=== PATIENT | male | born 1950 | race Caucasian/White ===

== ENCOUNTER → 2018-01-15 16:42 | Outpatient (CLI) | payer MEDICARE, OTHER, SELFPAY ==
[2018-01-15 17:11] LABS: CREATININE FINGERSTICK 1.1 mg/dL (0.70-1.30); EGFR FINGERSTICK > 60.0000 mL/min (>60)
== END ==
PROVIDERS: Family Provider Internal Medicine; PCP Internal Medicine; Visit Provider Internal Medicine
DX: Z01.812 Encounter for preprocedural laboratory examination (principal); R26.9 Unspecified abnormalities of gait and mobility; R20.0 Anesthesia of skin; R20.2 Paresthesia of skin
CPT/HCPCS: 70553; A9585

== ENCOUNTER → 2018-02-25 09:20 | Outpatient (CLI) | payer MEDICARE, OTHER, SELFPAY ==
[2018-02-25 12:17] LABS: Erythrocyte Sedimentation Rate 9 mm/hr (0-20)
[2018-02-25 13:28] LABS: HIV - WCH Non-Reactive (Nonreactive); Vitamin B12 471 pg/mL (211-911)
[2018-02-25 13:51] LABS: Folates, (Folic Acid) > 100.00 ng/mL (3.1-55.4); Rheumatoid Factor < 10.0 IU/mL (<15)
[2018-02-26 22:09] LABS: PROEL- A/G Ratio 1.4 (0.7-1.7); PROEL- Albumin 4.4 g/dL (2.9-4.4); PROEL- Alpha-1 Globulin 0.2 g/dL (0.0-0.4); PROEL- Alpha-2 Globulin 0.7 g/dL (0.4-1.0); PROEL- Beta Globulin 1.1 g/dL (0.7-1.3); PROEL- Globulin, Total 3.1 g/dL (2.2-3.9); PROEL- TOTAL PROTEIN 7.5 g/dL (6.0-8.5); RNP Ab 0.2 AI (0.0-0.9); Smith Ab <0.2 AI (0.0-0.9)
[2018-02-27 10:32] LABS: ANTINUCLEAR ANTIBODIES DIRECT Negative (Negative); Hep C Antibodies <0.1 s/co ratio (0.0-0.9)
== END ==
PROVIDERS: Family Provider Internal Medicine; PCP Internal Medicine; Referring Provider Psychiatry & Neurology Neurology; Visit Provider Psychiatry & Neurology Neurology
DX: G62.9 Polyneuropathy, unspecified (principal); R20.2 Paresthesia of skin; R53.83 Other fatigue
CPT/HCPCS: 36415; 82607; 82746; 84165; 85652; 86038; 86235; 86431; 86703; 86803; 97110

== ENCOUNTER 2018-03-14 10:00 | Outpatient (RCR) | payer MEDICARE, OTHER, SELFPAY ==
--- NOTE | 2018-01-21 09:30 | HP.PTEVAL_ITS ---
Patient's Visit Information ZOEY VARMA is a 67 year old M referred to Physical Therapy by Brenda Anderson with a diagnosis of abnormal gait, poor balance, can not walk on toes, no tandem walk. Date of Evaluation: 01/21/18 Physical Therapist: Jamila Corbett - Visit Plan Frequency: 2x /Week Duration: 4 Weeks Plan: Test Pt on the NeuroCom and treat accordingly if needed. 2X/ week for 4 weeks for hip and ankle strengthening (including HEP), high level balance activities, gait training with HEP - Subjective Subjective: Pt reports that he feels that he has some balance issues. Did Medicare test and memory is ok and weaning self off wellbuterin and as that occurs he feels that his balance is getting better. They are doing more tests and sending him to a Neurologist as well. The MRI had somethings wrong. He is unable to do heel to toe walk and feels balance is much better since weaning Wellbutrin. Stairs: no trouble other than knees are the issue. Ok to stand up from a chair without using arms. Pt feels that the flat surface is much easier. No dizziness. The wellbuterin made him not as focused. He quit walking and needs to get back to it. Pt has DM and the Neuropathy is not as bad if he keeps his feet warm. He thinks that he has a nerve conduction test scheduled. - Pain R knee pain Pain Intensity (Out of 10): 2 - Objective Gait: B hip drop, Walks with decrease push off, slight veering. Unable to heel raise unless uses UE for full pressure through UE's, very weak with toe raise. LE MMT: Hip flex R 4+/5 and L 4-/5, knee ext R 4/5 and L s+/5, R knee flex 4/5 and L 4-/5, Hip abd R 4-/5 and L 4/5, B hip ext 4/5, B ankle DF 3+/5, B PF 3-/5, weakness present B ankle EV and INV. Tight B HS. FGA: - Balance Scores Functional Gait Assessment Score: 21 % Disability: 30.0000 - Goals Goal 1:: I HEP Goal Time Frame: 4-6 Weeks Goal 2:: Increase LE strength by 1/2 muscle grade to increase overall function ( at time of eval: LE MMT: Hip flex R 4+/5 and L 4-/5, knee ext R 4/5 and L s+/5 , R knee flex 4/5 and L 4-/5, Hip abd R 4-/5 and L 4/5, B hip ext 4/5, B ankle DF 3+/5, B PF 3-/5, weakness present B ankle EV and INV) Goal Time Frame: 4-6 Weeks Goal 3:: Increase FGA by 4 points to decrease fall risk. (at time of eval 21) Goal Time Frame: 4-6 Weeks Goal 4:: Test pt on the Neurocom Goal Time Frame: 1 Week Goal 5:: Be able to walk with more of a heel to toe gait pattern and more of a push off with gait Goal Time Frame: 4-6 Weeks - Rehabilitation Potential Rehabilitation Potential: Good - Anticipated Interventions Patient/Client Instruction: Educate patient on: Plan of Care For the Purpose of:: To increase ROM, To improve nutrient delivery to tissue, To improve muscle performance and motor function, To improve ability to perform ADL's, To increase tolerance to activity/condition/position, To improve ability of physical actions for home/community/work/leisure, To improve gait and locomotor functions, To improve health of tissue, To decrease soft tissue restriction, To increase flexibility/ROM, To improve balance, To improve safety with gait Therapeutic Exercise to Include: Strength training, Balance training, Flexibilty training, Gait and locomotor training, via Neurocom Balance Mas, Passive ROM, Active ROM For the Purpose of:: To increase ROM, To improve nutrient delivery to tissue, To improve muscle performance and motor function, To improve ability to perform ADL's, To increase tolerance to activity/condition/position, To improve ability of physical actions for home/community/work/leisure, To improve gait and locomotor functions, To improve health of tissue, To decrease soft tissue restriction, To increase flexibility/ROM, To improve balance, To improve safety with gait Functional Training to Include: Gait training For the Purpose of:: To improve gait and locomotor functions Manual Therapy Techniques to Include: Passive ROM For the Purpose of:: To decrease soft tissue restriction, To increase flexibility/ROM Thank you for the opportunity to evaluate your patient. For Medicare and Medicare HMO plans, please review the plan of care and approve it. It will need to be FAXED BACK to us at [phone] for Medicare purposes. Please let me know if there are questions or concerns regarding this plan of care. Physician Signature: Date:
--- NOTE | 2018-01-28 09:23 | HP.PTCOM ---
PT Communication Note 01/28/[address] Brenda Anderson , Thank you for the referral of Kashif Stoll to our clinic with a diagnosis of abnormal gait. The patient was tested on the NeuroCom today and enclosed are the patients test results. On the Sensory Organization Test (SOT), the pt had some issue using his vestibular system to help maintain his balance. The use of his somatosensory and visual systems are with in normal limits. His strategy analysis is more ankle dominant which is the higher level strategy and his central of gravity alignment is slightly more to the Right but still with in functional limits. The Patient scored with in age related norms for overall reaction time on the Motor Control Test (MCT). Limits of stability test revealed decreased weight shift to the forward and to the right. At this point in time we will see Kashif in the clinic 2X/ week for 4 weeks to work on LE strength including planterflexion strength and work on weight shifting and vestibular inputs. Sincerely, Jamila Corbett Contact Information
--- NOTE | 2018-02-28 09:01 | HP.PTREVAL ---
Brenda Anderson, It has been my pleasure to treat ZOEY VARMA over the last 9 visits for abnormal gait, poor balance, can not walk on toes, no tandem walk. Please see the progress note below for an update on the physical therapy plan of care! Subjective: Still struggles with leg strength and ankle strength and the balance. He is getting a nerve conduction test late March. Objective/Function: Gait: walks with no forefoot push off. LE MMT: Hip flex R 4+/5 and L 4-/5, knee ext R 4/5 and L 3+/5, R knee flex 4/5 and L 4-/5, Hip abd R 4-/5 and L 4/5, B hip ext 4-/5, B ankle DF 3+/5, B PF 3-/5. FGA: 23 Plan Plan: 2X/ week for 3 weeks for gym rountine for hip, knee and ankle strength. Continue with some vestibular inputs and high level balance activities as needed. Goals Goal 1:: I HEP Goal Time Frame: 4-6 Weeks Goal 2:: Increase LE strength by 1/2 muscle grade to increase overall function (at time of eval: LE MMT: Hip flex R 4+/5 and L 4-/5, knee ext R 4/5 and L s+/5, R knee flex 4/5 and L 4-/5, Hip abd R 4-/5 and L 4/5, B hip ext 4/5, B ankle DF 3+/5, B PF 3-/5, weakness present B ankle EV and INV) Goal Time Frame: 4-6 Weeks Goal 3:: Increase FGA by 4 points to decrease fall risk. (at time of eval 21) Goal Time Frame: 4-6 Weeks Goal Progress: Goal Met Goal 4:: Test pt on the Neurocom Goal Time Frame: 1 Week Goal Progress: Goal Met Goal 5:: Be able to walk with more of a heel to toe gait pattern and more of a push off with gait Goal Time Frame: 4-6 Weeks Anticipated Interventions Patient/Client Instruction: Educate patient on: Plan of Care For the Purpose of:: To increase ROM, To improve nutrient delivery to tissue, To improve muscle performance and motor function, To improve ability to perform ADL's, To increase tolerance to activity/condition/position, To improve ability of physical actions for home/community/work/leisure, To improve gait and locomotor functions, To improve health of tissue, To decrease soft tissue restriction, To increase flexibility/ROM, To improve balance, To improve safety with gait Therapeutic Exercise to Include: Strength training, Balance training, Flexibilty training, Gait and locomotor training, via Neurocom Balance Mas, Passive ROM, Active ROM For the Purpose of:: To increase ROM, To improve nutrient delivery to tissue, To improve muscle performance and motor function, To improve ability to perform ADL's, To increase tolerance to activity/condition/position, To improve ability of physical actions for home/community/work/leisure, To improve gait and locomotor functions, To improve health of tissue, To decrease soft tissue restriction, To increase flexibility/ROM, To improve balance, To improve safety with gait Functional Training to Include: Gait training For the Purpose of:: To improve gait and locomotor functions Manual Therapy Techniques to Include: Passive ROM For the Purpose of:: To decrease soft tissue restriction, To increase flexibility/ROM Please do not hesitate to contact me at [phone] by phone or if you have questions or concerns regarding this new plan of care! Sincerely, Jamila Corbett
--- NOTE | 2018-03-14 11:01 | HP.PTDCSUM ---
HP - PT D/C Summary It has been my pleasure to treat ZOEY VARMA under orders from Brenda Anderson, for the diagnosis of abnormal gait, poor balance, can not walk on toes, no tandem walk for a total of 13 visit(s). Discharge Date: 03/14/18 Please see the following information for a summary of their discharge status. - Subjective Subjective: Pt reports that he did something to his back rolling over in bed the other day. He has been using the heating pad. Pt feels that his strength is building. He feels that his heel to toe pattern is better. He is going to join . Pt has [employer] and will do it through that. - Pain R knee pain Pain Intensity (Out of 10): 0 - Overall Improvement % Improvement: 60 - Objective Objective/Function: LE MMT: Hip flex R 4+/5 and L 4/5, knee ext R 4/5 and L 4+/5, R knee flex 4/5 and L 4/5, Hip abd R 4/5 and L 4+/5, B hip ext 4/5, B ankle DF 3+/5, B PF 3-/5, weakness present B ankle EV and INV still). Gait: walks with decrease B push off. FGA: 25 - Goals Goal 1:: I HEP Goal Progress: Goal Met Goal 2:: Increase LE strength by 1/2 muscle grade to increase overall function (at time of eval: LE MMT: Hip flex R 4+/5 and L 4-/5, knee ext R 4/5 and L s+/5, R knee flex 4/5 and L 4-/5, Hip abd R 4-/5 and L 4/5, B hip ext 4/5, B ankle DF 3+/5, B PF 3-/5, weakness present B ankle EV and INV) Goal Progress: Goal Met Goal 3:: Increase FGA by 4 points to decrease fall risk. (at time of eval 21) Goal Progress: Progressing Goal 4:: Test pt on the Neurocom Goal Progress: Goal Met Goal 5:: Be able to walk with more of a heel to toe gait pattern and more of a push off with gait Goal Progress: Progressing - Plan Plan: DC PT to [employer] - D/C Information Discharge Comments: DC PT to [employer] If there are questions or concerns regarding this patient's physical therapy, please feel free to call me at [phone]. Thank you for the referral of this patient. Sincerely, Jamila Corbett
== END 2018-03-14 19:00 | disposition home or self-care (01) ==
LOC: PT 10:00
PROVIDERS: Family Provider Internal Medicine; PCP Internal Medicine; Visit Provider Internal Medicine
DX: R26.9 Unspecified abnormalities of gait and mobility (principal)
CPT/HCPCS: 97110; 97161; 97530; 97750

== ENCOUNTER → 2018-03-19 09:22 | Outpatient (CLI) | payer MEDICARE, OTHER, SELFPAY ==
--- NOTE | 2018-03-19 09:25 | RAD_ITS ---
STUDY: X-RAY - RIGHT KNEE REASON FOR EXAM: Male, 67 years old. Right knee pain. No known injury. TECHNIQUE: 4 view(s) of the knee. COMPARISON: Comparison is made with prior examination dated December 15, 2014. FINDINGS: Normal visualized distal femur. Normal visualized proximal tibia and fibula. Normal proximal tibiofibular articulation. There is moderate degenerative arthrosis of the medial femorotibial compartment with moderate joint space narrowing. Normal lateral femorotibial compartment. There is mild degenerative arthrosis of the patellofemoral articulation. The soft tissue structures are unremarkable. RAD/Knee 4 or More Views IMPRESSION: Degenerative arthrosis. Electronically Signed: Wong Wilson MD at 8:54 EST Tel [phone], Service support ,
== END ==
PROVIDERS: Family Provider Internal Medicine; PCP Internal Medicine; Referring Provider Internal Medicine; Visit Provider Internal Medicine
DX: M25.561 Pain in right knee (principal)
CPT/HCPCS: 73564

== ENCOUNTER → 2019-01-15 12:16 | Outpatient (CLI) | payer MEDICARE, OTHER, SELFPAY ==
[2019-01-01 10:13] LABS: BUN 16 mg/dL (7-18); Creatinine, Serum 1.27 mg/dL (0.70-1.30); EST Glomerular Filtration Rate 60 mL/min (>60); Est Glom Filt Rate - Afr Amer 72 mL/min (>60)
--- NOTE | 2019-01-15 12:21 | MRI_ITS ---
STUDY: MRI BRAIN WITH AND WITHOUT CONTRAST REASON FOR EXAM: Male, 68 years old. Follow-up meningioma TECHNIQUE: Standardized multiplanar fat and water weighted pulse sequences were obtained. 19 IV Gadavist was administered for the contrast portion of the examination. COMPARISON: January 15, 2018 FINDINGS: Normal size of the ventricles and extra-axial spaces for the patient's age. Minor periventricular white matter ischemic changes without evidence for acute infarct Normal bilateral basal ganglia. Normal thalami. There is no extra-axial fluid accumulation. Normal flow voids within the major intracranial circulation suggesting patency by spin echo criteria. Normal venous enhancement. Tiny right sphenoid wing meningioma in demonstrated not significantly changed since previous study. Empty sella deformity likely of no significance. Normal, infundibular stalk, optic chiasm and hypothalamus. Normal tectal plate and pineal gland. Normal midbrain, nicci and medulla. Normal cerebellum. Normal basal cisterns. Normal bilateral temporal bones. Normal bilateral internal auditory canals. No demonstrated orbital abnormality, within the constraints of a routine brain study. Small mucous retention cyst in left maxillary sinus Normal calvarium and skull base. Normal visualized soft tissue structures. Normal visualized upper cervical spine. MRI/Brain W/WO Contrast IMPRESSION: Minor periventricular white matter ischemic change without evidence for acute infarct Stable appearance to tiny right sphenoid wing meningioma No other significant abnormality Electronically Signed: Roby Oleary MD at 18:05 EDT , Service support ,
== END ==
PROVIDERS: Family Provider Internal Medicine; PCP Internal Medicine; Referring Provider Psychiatry & Neurology Neurology; Visit Provider Psychiatry & Neurology Neurology
DX: D32.9 Benign neoplasm of meninges, unspecified (principal)
CPT/HCPCS: 36415; 70553; 82565; 84520; A9575

== ENCOUNTER → 2019-07-07 08:42 | Outpatient (CLI) | payer MEDICARE, OTHER, SELFPAY ==
[2019-07-02 11:43] VITALS: BMI 31.1
== END ==
PROVIDERS: PCP Internal Medicine; Referring Provider Internal Medicine Cardiovascular Disease; Visit Provider Internal Medicine Cardiovascular Disease
DX: R00.2 Palpitations (principal)
CPT/HCPCS: 93225; 93226

== ENCOUNTER → 2019-07-10 06:08 | Outpatient (CLI) | payer MEDICARE, OTHER, SELFPAY ==
[2019-07-02 11:43] VITALS: BMI 31.1
--- NOTE | 2019-07-10 06:09 | ECHOD_ITS ---
Reason For Study: SOB Procedure This was a 2D Doppler, Color Flow transthoracic echocardiogram. The exam was of adequate technical quality. Exam performed in department. Left Ventricle Normal LV size. Left ventricular systolic function is normal. The estimated ejection fraction is 60 %. Diastolic function is indeterminate. No regional wall motion abnormalities noted. Right Ventricle Normal RV size. Normal systolic function. Atria The left atrium is mildly enlarged. Normal right atrium. No doppler evidence for ASD. Mitral Valve There is no mitral annular calcification. Mild diffuse mitral valve thickening. Mild focal mitral valve calcification of the anterior leaflet. Mild (1+) mitral valve insufficiency. Tricuspid Valve Normal tricuspid valve. Mild tricuspid valve insufficiency. Right ventricular systolic pressure estimated to be 26 mmHg. Aortic Valve Trisinus/trileaflet aortic valve. Moderate diffuse aortic valve thickening. Moderate diffuse aortic valve calcification. Mild aortic stenosis. Mild (1+) aortic valve insufficiency. Pulmonic Valve The pulmonic valve is not well visualized. Mild (1+) pulmonic valve insufficiency. Great Vessels Normal sized aortic root. Calcified aortic root. Pericardium/Pleural No pericardial effusion. MMode/2D Measurements & Calculations LVIDd: 4.1 cm IVSd: 1.2 cm LVOT diam: 2.0 cm LVIDs: 2.8 cm LVPWd: 1.1 cm LVOT area: 3.0 cm2 RVDd: 3.3 cm FS: 31.3 % Ao root diam: 3.7 cm LAV(MOD-bp): 77.5 ml LVAd ap4: 32.7 cm2 LAV(MOD-bp) Indexed: 36.7 ml/m2 EDV(MOD-sp4): 104.4 ml LAV(MOD-sp2): 68.1 ml EDV(sp4-el): 107.2 ml LAV(MOD-sp4): 87.9 ml LVAs ap4: 19.1 cm2 ESV(MOD-sp4): 45.1 ml ESV(sp4-el): 43.1 ml EF(MOD-sp4): 56.8 % EF(sp4-el): 59.8 % SV(MOD-sp4): 59.4 ml SV(sp4-el): 64.1 ml LA A4 area: 24.7 cm2 LA dimension(2D): 4.2 cm RA A4 area: 14.2 cm2 Doppler Measurements & Calculations MV E max janes: 83.1 cm/sec Lat Peak E' Janes: 6.9 cm/sec Med Peak E' Janes: 7.0 cm/sec MV A max janes: 80.1 cm/sec E/E' lat: 12.0 E/E' med: 11.9 MV E/A: 1.0 Ao V2 max: 193.5 cm/sec AI max janes: 431.9 cm/sec LV V1 max: 110.7 cm/sec Ao max P.0 mmHg AI max P.7 mmHg LV V1 max P.9 mmHg Ao V2 mean: 129.1 cm/sec LV V1 mean P.5 mmHg Ao mean P.5 mmHg AI dec slope: 351.4 cm/sec2 LV V1 mean: 73.9 cm/sec Ao V2 VTI: 39.7 cm AI P1/2t: 360.0 msec LV V1 VTI: 23.0 cm FACUNDO(I,D): 1.7 cm2 FACUNDO(V,D): 1.7 cm2 SV(LVOT): 68.6 ml PA V2 max: 96.1 cm/sec TR max janes: 240.9 cm/sec TR max P.3 mmHg Interpretation Summary Left ventricular systolic function is normal. The estimated ejection fraction is 60 %. The left atrium is mildly enlarged. There is no mitral annular calcification. Mild diffuse mitral valve thickening. Mild focal mitral valve calcification of the anterior leaflet. Mild (1+) mitral valve insufficiency. Mild tricuspid valve insufficiency. Mild aortic stenosis. Mild (1+) aortic valve insufficiency. Mild (1+) pulmonic valve insufficiency. Calcified aortic root. Right ventricular systolic pressure estimated to be 26 mmHg. Diastolic function is indeterminate. Ordering Physician: Curt Franks Referring Physician: Brenda Anderson M.D. Performed By: Raquel Lindsey RDCS
--- NOTE | 2019-07-10 14:29 | STRESSREP ---
Stress Test Report Date: 07-10-2019 Procedure: Exercise tolerance test/imaging study Indications: Shortness of breath/dyspnea on exertion Consent: Per the patient Procedure: The patient exercised on a Enoc protocol for 7 minutes completing Stage II and 1 minute of Stage III achieving a peak heart rate of 148 bpm (98 % predicted maximal heart rate) with a peak blood pressure 150/72 mmHg and a peak MET capacity of 8 METs. The baseline ECG demonstrated normal sinus rhythm. The peak exercise ECG demonstrated somatic/motion artifact with the appearance of [id number] ST segment variability with approximately [address] segment depression in leads II, III, aVF, and approximately 0.5 mm to [address] segment depression in leads V5 and V6 with gradual resolution towards baseline in recovery. There was a rare PVC during exercise and recovery and an atrial quadruplet during recovery. The functional capacity was considered average. There was no complaint of chest discomfort during exercise or recovery. The examination was discontinued secondary to dyspnea. Impression: 1. Technically adequate (percent predicted maximal heart rate greater than 85%) exercise tolerance test 2. Peak exercise ECG with [id number] ST segment variability with approximately [address] segment depression in leads II, III, aVF, and approximately 0.5 mm to [address] segment depression in leads V5 and V6 with gradual resolution towards baseline in recovery 3. There was a rare PVC during exercise and recovery and an atrial quadruplet during recovery 4. Nuclear images pending Myocardial perfusion imaging study: Technique: The patient was injected with 14.5 mCi of technetium 99m Cardiolite and subsequently rest SPECT Cardiolite nuclear imaging was obtained in the horizontal long, vertical long, and short axis views. The patient exercised on a Enoc protocol for 7 minutes completing Stage II and 1 minute of Stage III achieving a peak heart rate of 148 bpm (98 % predicted maximal heart rate) with a peak blood pressure 150/72 mmHg and a peak MET capacity of 8 METs. The patient was injected with 44.6 mCi of technetium 99m Cardiolite and subsequently stress SPECT Cardiolite nuclear imaging was obtained in the horizontal long, vertical long, and short axis views. A gated Cardiolite study at peak stress was obtained. Interpretation: Rest and stress SPECT Cardiolite nuclear imaging status post realignment, normalization, and attenuation correction, demonstrates the appearance of a small area of subtle diminished tracer uptake in the distal inferior segments at rest which appears to improve and/or normalize following stress. There is end systolic thickening and brightening. The gated Cardiolite study demonstrates myocardial thickening and inward wall motion. The reported LVEF is 57 %. Impression: 1. Rest and stress SPECT Cardiolite nuclear imaging demonstrate myocardial perfusion changes at rest which appear to improve and/or normalize following stress appearing compatible shifting soft tissue attenuation/artifact with no myocardial perfusion changes considered diagnostic for associated stress-induced myocardial ischemia. 2. The gated Cardiolite study reports an LVEF of 57 %. This note was generated with DocTreeation software. It may contain incorrect words, spelling, and punctuation that were not noted in checking the note before signing.
== END ==
PROVIDERS: PCP Internal Medicine; Referring Provider Internal Medicine Cardiovascular Disease; Visit Provider Internal Medicine Cardiovascular Disease
DX: R06.02 Shortness of breath (principal); R06.00 Dyspnea, unspecified
CPT/HCPCS: 78452; 93017; 93306; A9500; A4216

== ENCOUNTER → 2020-06-21 10:46 | Outpatient (CLI) | payer MEDICARE, OTHER, SELFPAY ==
[2020-06-08 15:37] VITALS: BMI 30.3
== END ==
PROVIDERS: PCP Internal Medicine; Referring Provider Internal Medicine Cardiovascular Disease; Visit Provider Internal Medicine Cardiovascular Disease
DX: I48.91 Unspecified atrial fibrillation (principal)
CPT/HCPCS: 93225; 93226

== ENCOUNTER → 2020-06-22 12:40 | Outpatient (CLI) | payer MEDICARE, OTHER, SELFPAY ==
[2020-06-08 15:37] VITALS: BMI 30.3
--- NOTE | 2020-06-22 12:40 | ECHOD_ITS ---
Reason For Study: Afib/Flutter Procedure This was a 2D Doppler, Color Flow transthoracic echocardiogram. The exam was of adequate technical quality. Exam performed in department. Left Ventricle Normal LV size. Left ventricular systolic function is normal. The estimated ejection fraction is 65 %. Unable to assess diastolic dysfunction. No regional wall motion abnormalities noted. Right Ventricle Normal RV size. Normal systolic function. Atria The left atrium is mildly enlarged. Normal right atrium. No doppler evidence for ASD. Mitral Valve There is no mitral annular calcification. Mild diffuse mitral valve thickening. Mild (1+) mitral valve insufficiency. Tricuspid Valve Normal tricuspid valve. Mild tricuspid valve insufficiency. Right ventricular systolic pressure estimated to be 25 mmHg. Aortic Valve Trisinus/trileaflet aortic valve. Mild diffuse aortic valve thickening. Moderate to severe focal aortic valve leaflet calcification. Mild aortic stenosis. Trivial aortic valve insufficiency. Pulmonic Valve The pulmonic valve is not well visualized. Mild (1+) pulmonic valve insufficiency. Great Vessels Normal sized aortic root. Pericardium/Pleural No pericardial effusion. MMode/2D Measurements & Calculations LVIDd: 4.3 cm IVSd: 1.1 cm LVOT diam: 2.0 cm LVIDs: 2.6 cm LVPWd: 1.1 cm LVOT area: 3.2 cm2 RVDd: 3.8 cm FS: 39.8 % Ao root diam: 3.7 cm LAV(MOD-bp): 61.9 ml LA A4 area: 20.1 cm2 LA dimension: 3.8 cm LAV(MOD-bp) Indexed: 29.7 ml/m2 LAV(MOD-sp2): 66.0 ml LAV(MOD-sp4): 57.6 ml RA A4 area: 15.2 cm2 Doppler Measurements & Calculations MV E max johnathan: 85.6 cm/sec Ao V2 max: 175.4 cm/sec AI max johnathan: 442.3 cm/sec Ao max P.3 mmHg AI max P.3 mmHg Ao V2 mean: 121.1 cm/sec AI dec slope: 193.7 cm/sec2 Ao mean P.7 mmHg AI P1/2t: 668.9 msec Ao V2 VTI: 31.6 cm FACUNDO(I,D): 1.7 cm2 FACUNDO(V,D): 1.7 cm2 LV V1 max: 92.0 cm/sec SV(LVOT): 54.8 ml PA V2 max: 80.9 cm/sec LV V1 max P.4 mmHg LV V1 mean P.0 mmHg LV V1 mean: 65.9 cm/sec LV V1 VTI: 17.1 cm TR max johnathan: 232.9 cm/sec TR max P.7 mmHg Interpretation Summary Left ventricular systolic function is normal. The estimated ejection fraction is 65 %. The left atrium is mildly enlarged. Mild diffuse mitral valve thickening. Mild (1+) mitral valve insufficiency. Mild tricuspid valve insufficiency. Mild aortic stenosis. Trivial aortic valve insufficiency. Mild (1+) pulmonic valve insufficiency. Right ventricular systolic pressure estimated to be 25 mmHg. Unable to assess diastolic dysfunction. Ordering Physician: Curt Frakns Referring Physician: Brenda Anderson M.D. Performed By: Trav Cabral RCS
== END ==
PROVIDERS: PCP Internal Medicine; Referring Provider Internal Medicine Cardiovascular Disease; Visit Provider Internal Medicine Cardiovascular Disease
DX: I48.91 Unspecified atrial fibrillation (principal); E78.2 Mixed hyperlipidemia; I10 Essential (primary) hypertension; I38 Endocarditis, valve unspecified
CPT/HCPCS: 93306

== ENCOUNTER 2020-07-19 10:36 | Day surgery (SDC) | payer MEDICARE, OTHER, SELFPAY ==
[2020-06-08 15:37] VITALS: BMI 30.3
[2020-07-15 10:59] VITALS: BMI 29.8
--- NOTE | 2020-07-15 11:55 | RAD_ITS ---
STUDY: X-RAY CHEST REASON FOR EXAM: Male, 70 years old. Pre procedure TECHNIQUE: PA and lateral views of the chest. COMPARISON: None. FINDINGS: The lungs are clear and expanded. There is no demonstrated pleural abnormality. Normal size heart. Normal mediastinum and ching. Normal visualized pulmonary arteries. Normal visualized aortic arch and descending thoracic aorta. Normal visualized thoracic spine. Normal visualized ribs, clavicles, and shoulders. There is no demonstrated abnormality of the visualized soft tissue structures of the upper abdomen. RAD/Chest PA and Lateral IMPRESSION: Normal x-ray examination of the chest. Electronically Signed: Kevin Gonzalez DO at 4:56 EST Tel , Service support ,
[2020-07-15 13:01] LABS: International Normalized Ratio 1.2
[2020-07-15 13:02] LABS: Partial Thromboplast Time 37.1 Seconds (24.1-36.2)
[2020-07-15 13:24] LABS: Anion Gap 7 (5-15); BUN 19 mg/dL (7-18); BUN/Creat Ratio 16.2 RATIO (10-20); Calcium,Total 9.8 mg/dL (8.5-10.1); Chloride 103 mmol/L (98-107); Creatinine, Serum 1.17 mg/dL (0.70-1.30); EST Glomerular Filtration Rate 66 mL/min (>60); Est Glom Filt Rate - Afr Amer 79 mL/min (>60); Glucose 104 mg/dL (74-106); Potassium 3.6 mmol/L (3.5-5.1); Sodium Level 139 mmol/L (136-145)
[2020-07-18 10:34] VITALS: BMI 29.8
--- NOTE | 2020-07-19 07:41 | PCM.HP.BLA ---
History and Physical Date of Admission: 07/19/20 [facility] [address] [place], [place] [address] OFFICE VISIT Date of Service: 07/15/20 MR#: [id number] Acct: [id number] Name: ZOEY VARMA Rep #: [id number] : 1950 Provider: CRISTOFER Trejo Age/Sex: 70/M Location: [facility] [place].[facility] Status: Signed HPI HPI History of Present Illness Details: This is a 70-year-old gentleman that presents here today for an updated history and physical for an upcoming cardioversion with Dr. Franks. He does have a history of hypertension, hyperlipidemia, obstructive sleep apnea, mild aortic stenosis. He was noted at his last office visit to be in atrial fibrillation. Pt does question if he is mo re fatigued. He does not have any chest pain. He does not have any worsening SOB. He is not aware of palpitations. He does not have any edema. Intake Vital Signs 07/15/20 Height 5 ft 9 in 07/15/20 Weight: 202 lb 07/15/20 BMI 29.8 07/15/20 BP 129/80 H 07/15/20 Blood Pressure Location Lt brachial 07/15/20 Position Sitting 07/15/20 Respiration 18 07/15/20 Pulse 88 07/15/20 Pulse Source Monitor 07/15/20 Pulse Oximetry (%) 98 Intake Visit Reasons: update H & P Security Assistant Required: No Accompanied by: None Is patient in pain?: No Allergies adhesive tape Allergy (Verified 07/15/20 10:55) Rash Medications atenolol 50 mg tablet 50 mg PO DAILY 06/25/19 [History Confirmed 07/15/20] calcium carbonate 600 mg calcium (1,500 mg) tablet 1,200 mg PO DAILY tab 06/25/19 [History Confirmed 07/15/20] fenofibrate nanocrystallized 145 mg tablet 145 mg PO DAILY 06/25/19 [History Confirmed 07/15/20] levomefolate 15 mg-algal oil 90.314 mg capsule 1 cap PO DAILY 06/25/19 [History Confirmed 07/15/20] lisinopril 20 mg-hydrochlorothiazide 25 mg tablet 1 tab PO DAILY 06/25/19 [History Confirmed 07/15/20] metformin 500 mg tablet 1,000 mg PO BID tab 06/25/19 [History Confirmed 07/15/20] multivitamin 1 tab PO DAILY 06/25/19 [History Confirmed 07/15/20] nifedipine 60 mg tablet,extended release 24 hr 60 mg PO DAILY 06/25/19 [History Confirmed 07/15/20] potassium chloride 10 mEq tablet,extended release 10 meq PO DAILY 06/25/19 [History Confirmed 07/15/20] semaglutide 1 mg/dose (2 mg/1.5 mL) subcutaneous pen injector 1 mg SC QWEEK 06/25/19 [History Confirmed 07/15/20] B-complex with vitamin C 1 cap PO DAILY 07/02/19 [History Confirmed 07/15/20] Panax ginseng root 1,000 mg tablet 1,000 mg PO DAILY 07/02/19 [History Confirmed 07/15/20] antiarthritic combination no.2 900 mg tablet 1,200 mg PO DAILY tab 07/02/19 [History Confirmed 07/15/20] arginine (L-arginine) 500 mg tablet 500 mg PO DAILY 07/02/19 [History Confirmed 07/15/20] cholecalciferol (vitamin D3) 100 mcg (4,000 unit) capsule 4,000 unit PO DAILY 07/02/19 [History Confirmed 07/15/20] cinnamon bark 500 mg capsule 500 mg PO DAILY 07/02/19 [History Confirmed 07/15/20] magnesium 250 mg tablet 250 mg PO DAILY 07/02/19 [History Confirmed 07/15/20] omega-3 fatty acids 1,000 mg capsule 1,000 mg PO BID 07/02/19 [History Confirmed 07/15/20] rosuvastatin 10 mg tablet 10 mg PO DAILY 07/02/19 [History Confirmed 07/15/20] saw palmetto 450 mg capsule 450 mg PO BID 07/02/19 [History Confirmed 07/15/20] turmeric 400 mg capsule 80 mg PO cap 07/02/19 [History Confirmed 07/15/20] vitamin E (dl, acetate) 400 unit capsule 400 unit PO DAILY 07/02/19 [History Confirmed 07/15/20] zinc acetate 25 mg (zinc) capsule 25 mg PO DAILY 07/02/19 [History Confirmed 07/15/20] apixaban 5 mg tablet 5 mg PO BID #180 tab 07/15/20 [Rx Confirmed 07/15/20] [facility] Medical History Atrial fibrillation (Acute) Valvular heart disease (Acute) Mixed hyperlipidemia (Chronic) TOOTIE (obstructive sleep apnea) (Chronic) Essential hypertension (Chronic) Meningioma, cerebral (Chronic) Type 2 diabetes mellitus (Chronic) Surgical History History of arthroscopy of both knees (Resolved) History of total left knee replacement (Resolved) Family History Mother Diabetes Heart disease Cancer Father Hypertension Cancer Lung Sister Diabetes Brother Diabetes Social History (Updated 07/15/20 @ 15:07 by Laura CLEVELAND, [place]) Smoking Status: Former smoker alcohol intake: current details: occasional substance use type: does not use caffeine: Yes Type: coffee Number of servings: 2 ROS Const Const: Negative for fatigue, weakness, frequent falls, excessive sweating, weight gain or weight loss Eyes Eyes: Negative for transient loss of vision, blurry vision or change in vision ENT ENT: Positive for balance problems (slight); negative for dizziness Cardio Chest Pain: No Palpitations: No Edema: None Muscle aches with walking: None Resp Respiratory: Negative for SOB with activity or SOB at rest GI GI: Negative vomiting or vomiting blood/hematemesis : Negative for hematuria Musc Musc: Positive for balance problems (slight); negative for muscle aches/ myalgia, muscle weakness or joint pain Skin Skin: Negative non-healing lesions or rash Neuro Neuro: Negative for dizziness, lightheadedness, orthostatic symptoms, frequent falls, weakness or blurry vision Sergio Hematologic/Lymphatic: Negative for easy bleeding Endo Endo: Negative for fatigue or excessive sweating Psych Psych: Negative for anxiety or depression Allergy Allergy/Immunology: Negative for hives, Negative for rash Cardiology Exam Const Appearance: cooperative, healthy appearing, comfortable, no acute distress, well developed and well groomed Nutritional Appearance: well nourished and obese Orientation: alert, awake and oriented x3 Head Head: normal to inspection, normocephalic and atraumatic Ears: hearing grossly normal bilaterally Nose: external nose normal Face and Sinus: face symmetric Eyes Eyelids: eyelids normal Conjunctivae: conjunctivae normal Pupils: PERRL EOM: EOM intact bilaterally Neck Neck: normal visual inspection, full ROM and no JVD Carotids: normal carotid upstroke Chest Chest inspection: normal inspection of the chest, symmetric chest movement and normal respiratory effort; negative cough Auscultation: Bilateral: Clear to Auscultation Cardio Rate: regular rate Rhythm: irregularly irregular Heart sounds: S1 normal and S2 normal; negative rub, gallop or murmur GI GI: normal to inspection, soft, bowel sounds present and obese Neuro General: alert, awake, oriented x3 and moves all extremities Skin Skin: no rashes or lesions noted Extremities Pulses: Normal: Right Posterior Tibial Pulse, Left Posterior Tibial Pulse, Right Radial Pulse, Left Radial Pulse Lower Extremity Edema: None: Bilateral Psych Psychological: normal affect Assessment & Plan 1. Atrial fibrillation I48.91 Plan Patient has remained in atrial fibrillation. He does feel that he may be slightly fatigued from this. He is unsure if this is related to his atrial fibrillation. He has been anticoagulated for greater than 1 month. This will be scheduled for next week. He does have a Ken score of 2. Did review this, recommend that he continue with his anticoagulation post procedure. Orders Orders: 12 Lead EKG performed by [facility] Today 2. Essential hypertension I10 Plan Blood pressure is well controlled on current medications, we do not recommend any changes at this time. 3. Mixed hyperlipidemia E78.2 Plan Patient will continue with his fenofibrate and crestor 4. TOOTIE (obstructive sleep apnea) G47.33 Plan Patient will continue with CPAP Plan Detail Other Medications Refilled: apixaban 5 mg PO BID 180 tabs 3RF Follow Up 07/15/20 (cancel appt with [facility] on 07/20- make 3 month appt with [facility]) 9 Months (PFM) Coding Level of Care Code Off vis,est,level 4 Diagnoses Atrial fibrillation I48.91 Essential hypertension I10 Mixed hyperlipidemia E78.2 TOOTIE (obstructive sleep apnea) G47.33 Coding Level of Care Code Off vis,est,level 4 Diagnoses Atrial fibrillation I48.91 Essential hypertension I10 Mixed hyperlipidemia E78.2 TOOTIE (obstructive sleep apnea) G47.33 Supplemental Info Supplemental Information Stress Test Report Date: 07-10-2019 Procedure: Exercise tolerance test/imaging study Indications: Shortness of breath/dyspnea on exertion Consent: Per the patient Procedure: The patient exercised on a Enoc protocol for 7 minutes completing Stage II and 1 minute of Stage III achieving a peak heart rate of 148 bpm (98 % predicted maximal heart rate) with a peak blood pressure 150/72 mmHg and a peak MET capacity of 8 METs. The baseline ECG demonstrated normal sinus rhythm. The peak exercise ECG demonstrated somatic/motion artifact with the appearance of [id number] ST segment variability with approximately [address] segment depression in leads II, III, aVF, and approximately 0.5 mm to [address] segment depression in leads V5 and V6 with gradual resolution towards baseline in recovery. There was a rare PVC during exercise and recovery and an atrial quadruplet during recovery. The functional capacity was considered average. There was no complaint of chest discomfort during exercise or recovery. The examination was discontinued secondary to dyspnea. Impression: 1. Technically adequate (percent predicted maximal heart rate greater than 85%) exercise tolerance test 2. Peak exercise ECG with [id number] ST segment variability with approximately [address] segment depression in leads II, III, aVF, and approximately 0.5 mm to [address] segment depression in leads V5 and V6 with gradual resolution towards baseline in recovery 3. There was a rare PVC during exercise and recovery and an atrial quadruplet during recovery 4. Nuclear images pending Myocardial perfusion imaging study: Technique: The patient was injected with 14.5 mCi of technetium 99m Cardiolite and subsequently rest SPECT Cardiolite nuclear imaging was obtained in the horizontal long, vertical long, and short axis views. The patient exercised on a Enoc protocol for 7 minutes completing Stage II and 1 minute of Stage III achieving a peak heart rate of 148 bpm (98 % predicted maximal heart rate) with a peak blood pressure 150/72 mmHg and a peak MET capacity of 8 METs. The patient was injected with 44.6 mCi of technetium 99m Cardiolite and subsequently stress SPECT Cardiolite nuclear imaging was obtained in the horizontal long, vertical long, and short axis views. A gated Cardiolite study at peak stress was obtained. Interpretation: Rest and stress SPECT Cardiolite nuclear imaging status post realignment, normalization, and attenuation correction, demonstrates the appearance of a small area of subtle diminished tracer uptake in the distal inferior segments at rest which appears to improve and/or normalize following stress. There is end systolic thickening and brightening. The gated Cardiolite study demonstrates myocardial thickening and inward wall motion. The reported LVEF is 57 %. Impression: 1. Rest and stress SPECT Cardiolite nuclear imaging demonstrate myocardial perfusion changes at rest which appear to improve and/or normalize following stress appearing compatible shifting soft tissue attenuation/artifact with no myocardial perfusion changes considered diagnostic for associated stress-induced myocardial ischemia. 2. The gated Cardiolite study reports an LVEF of 57 %. Echocardiogram 06/2020: Left ventricular systolic function is normal. The estimated ejection fraction is 65 %. The left atrium is mildly enlarged. Mild diffuse mitral valve thickening. Mild (1+) mitral valve insufficiency. Mild tricuspid valve insufficiency. Mild aortic stenosis. Trivial aortic valve insufficiency. Mild (1+) pulmonic valve insufficiency. Right ventricular systolic pressure estimated to be 25 mmHg. Unable to assess diastolic dysfunction. Diagnostics Electrocardiogram 07/15/20 Echocardiogram 06/22/20 Stress Test Nuclear Medicine 07/10/19 Stress Test 07/10/19 Chest X-Ray 07/15/20 COVID (Procedure Consent) Procedure Criteria Procedure Criteria: Yes Elective The surgeon/proceduralist and patient have discussed in detail the risk of exposure to and/or potential harm posed by the COVID-19 virus with having a surgery/procedure at this time versus the risk of? delaying the surgery/procedure. It is not possible to know either the risk of delaying the surgery or procedure or chance of getting an infection with perfect accuracy, but a joint decision was made between the patient and the surgeon/proceduralist ?to proceed at this time with the scheduled surgery/procedure as indicated on the consent form. 07/15/20 1507 <Electronically signed by Laura CLEVELAND> Date Laura CLEVELAND I have re-examined the patient. There are no clinical changes since date of exam.
--- NOTE | 2020-07-19 13:29 | PRO.PCM_ITS ---
Procedure Report Date of Procedure: 07/19/20 CONSCIOUS SEDATION REPORT DATE OF SERVICE: July 19, 2020 BRIEF HISTORY OF PRESENT ILLNESS: The patient is a 70-year-old male who presented to [facility] for an elective outpatient cardioversion due to underlying atrial fibrillation. The patient has never previously undergone a cardioversion. His last surface echocardiogram revealed an ejection fraction of approximately 65%. The patient is currently systemically anticoagulated on Eliquis. He does have a known history of obstructive sleep apnea and currently utilizes nocturnal CPAP therapy. He denies a history of any prior anesthetic complications. PHYSICAL EXAMINATION: VITAL SIGNS: Reviewed and were acceptable. GENERAL: The patient is a male, in no apparent distress, speaking in full sentences. HEENT: Normocephalic, atraumatic. Mucous membranes are moist and pink. Good mouth opening noted. Trachea is midline. Good neck mobility. CHEST: S1, S2 irregularly irregular. No murmurs, rubs or gallops were noted. LUNGS: Clear to auscultation bilaterally without appreciable wheezes, rales or rhonchi. ABDOMEN: Soft, nontender, nondistended. Positive bowel sounds. EXTREMITIES: There is no clubbing, cyanosis or edema. ASA Class: II DESCRIPTION OF PROCEDURE: After confirmation of informed consent, the patient's anesthesia plan was reviewed in detail. Propofol was chosen. Risks and benefits were reviewed and the patient agreed to proceed. At 1253, the patient was given 60 mg of propofol. The patient achieved an appropriate level of sedation and was given a 200 joule synchronized cardioversion by Dr. Franks at the bedside. This was successful in achieving normal sinus rhythm. The patient was monitored until 1305, at which time he reached his baseline mental status and function. The patient tolerated the procedure well. COMPLICATIONS: None ESTIMATED BLOOD LOSS: None RECOMMENDATIONS: Okay to recover in usual fashion. [id number]: Other Procedure See Report - [id number]
--- NOTE | 2020-07-19 13:53 | CARDIOVERS ---
Cardioversion Cardioversion: Date: 07/19/2020 Procedure: Synchronized Biphasic DC Cardioversion Indications: Atrial fibrillation Consent: Per the Patient Anesthesia: per Dr. Young of pulmonology and critical care medicine with Propofol 60 mg IV push totat Procedure: Synchronized Biphasic DC Cardioversion: 200 J x 1: Result: Sinus rhythm Complications: no apparent complications This note was generated with [employer] dictation software. It may contain incorrect words, spelling, and punctuation that were not noted in checking the note before signing.
== END 2020-07-19 14:00 | disposition home or self-care (01) ==
LOC: CLSP 10:36
PROVIDERS: PCP Internal Medicine; Referring Provider Internal Medicine Cardiovascular Disease; Visit Provider Internal Medicine Cardiovascular Disease
DX: I48.91 Unspecified atrial fibrillation (principal); E78.2 Mixed hyperlipidemia; I10 Essential (primary) hypertension; G47.33 Obstructive sleep apnea (adult) (pediatric); I34.0 Nonrheumatic mitral (valve) insufficiency; Z79.01 Long term (current) use of anticoagulants; Z79.84 Long term (current) use of oral hypoglycemic drugs; Z87.891 Personal history of nicotine dependence; E11.9 Type 2 diabetes mellitus without complications; D32.0 Benign neoplasm of cerebral meninges; I37.1 Nonrheumatic pulmonary valve insufficiency
CPT/HCPCS: 36415; 71046; 80048; 85610; 85730; 92960; 93005; J7040

== ENCOUNTER → 2020-11-10 06:53 | Outpatient (CLI) | payer MEDICARE, OTHER, SELFPAY ==
[2020-10-27 10:21] VITALS: BMI 29.5
--- NOTE | 2020-11-10 09:24 | STRESSREP_ITS ---
Stress Test Report Date: 11-10-2020 Procedure: Exercise tolerance test/imaging study Indications: Chest pain; shortness of breath/dyspnea on exertion; paroxysmal a trial fibrillation; aortic valve stenosis Consent: Per the patient Procedure: The patient exercised on a Enoc protocol for 6 minutes completing Stage II achieving a peak heart rate of 179 bpm (119% predicted maximal heart rate) with a peak blood pressure 160/70 mmHg and a peak MET capacity of 7 METs. The baseline ECG demonstrated atrial fibrillation; nonspecific ST/T wave abnormality. The peak exercise ECG demonstrated continued atrial fibrillation with nonspecific ST/T wave abnormality. There were no cardiac dysrhythmias pretest, during exercise, or recovery. The functional capacity was considered average. There was no complaint of chest discomfort during exercise or recovery. The examination was discontinued secondary to dyspnea. Impression: 1. Technically adequate (percent predicted maximal heart rate greater than 85%) exercise tolerance test 2. Peak exercise ECG with continued atrial fibrillation with nonspecific ST/T wave abnormality 3. There were no cardiac dysrhythmias pretest, during exercise, or recovery 4. Nuclear images pending Myocardial perfusion imaging study: Technique: The patient was injected with 12.0 mCi of technetium 99m Cardiolite and subse quently rest SPECT Cardiolite nuclear imaging was obtained in the horizontal long, vertical long, and short axis views. The patient exercised on a Enoc protocol for 6 minutes completing Stage II achieving a peak heart rate of 179 bpm (119% predicted maximal heart rate) with a peak blood pressure 160/70 mmHg and a peak MET capacity of 7 METs. The patient was injected with 33.8 mCi of technetium 99m Cardiolite and subsequently stress SPECT Cardiolite nuclear imaging was obtained in the horizontal long, vertical long, and short axis views. A gated Cardiolite study at peak stress was obtained. Interpretation: Rest and stress SPECT Cardiolite nuclear imaging status post realignment, normalization, and attenuation correction, demonstrates the appearance of body motion during image acquisition and at rest the appearance of relative uniform tracer uptake and myocardial perfusion appearing within normal limits and following stress the appearance of diminished myocardial perfusion/tracer uptake in portions of the mid to distal inferior septal/distal inferior/inferoapical segments. There are similar type findings on the stress polar map images.. There is diminished end systolic thickening and brightening.. The gated Cardiolite study demonstrates myocardial thickening and inward wall motion. The reported LVEF is 58%. Impression: 1. Rest and stress SPECT Cardiolite nuclear imaging demonstrate the appearance of body motion during image acquisition and status post stress the appearance of diminished myocardial perfusion/tracer uptake in portions of the mid to distal inferior septal/distal inferior/inferoapical segments concerning for an area of stress-induced myocardial ischemia. 2. The gated Cardiolite study reports an LVEF of 58%. This note was generated with [employer] software. It may contain incorrect words, spelling, and punctuation that were not noted in checking the note before signing.
== END ==
PROVIDERS: PCP Internal Medicine; Referring Provider Nurse Practitioner Family; Visit Provider Nurse Practitioner Family
DX: R07.9 Chest pain, unspecified (principal); R06.00 Dyspnea, unspecified; I48.0 Paroxysmal atrial fibrillation; I38 Endocarditis, valve unspecified; E78.2 Mixed hyperlipidemia; I10 Essential (primary) hypertension
CPT/HCPCS: 78452; 93017; A9500

== ENCOUNTER 2020-11-22 08:23 | Day surgery (SDC) | payer MEDICARE, OTHER, SELFPAY ==
[2020-10-27 10:21] VITALS: BMI 29.5
[2020-11-17 13:39] LABS: Absolute Lymphocyte Count 1.49 X10^3/uL (0.83-4.51); Absolute Neutrophil Count 5.4 X10^3/uL (2.0-7.7); Basophil# 0.03 X10^3/uL; Basophil% 0.4 % (0-1); Eosinophils% 1.3 % (0-5); Hematocrit 44.1 % (40-54); Hemoglobin 15.3 g/dL (13.0-16.5); Lymphocyte # 1.49 X10^3/ul (0.83-4.51); Lymphocyte % 19.6 % (19-41); Mean Corp Hgb Conc 34.7 g/dL (32-36); Mean Corpuscular Hgb 29.6 pg (27.0-32.0); Mean Corpuscular Volume 85.3 fL (80-94); Mean Platelet Vol. 10.6 fl (6.2-12.0); Monocyte# 0.58 X10^3/uL; Monocyte% 7.6 % (0-10); NRBC Flagged by Analyzer 0 % (0-5); Neutrophil # 5.37 X10^3/uL (2.7-7.7); Neutrophil % 70.7 % (47-70); Platelet Count 249 K/mm3 (150-450); RBC Distribution Width CV 12.6 % (11.6-14.6); RBC Distribution Width SD 38.8 fl (35.1-43.9); Red Blood Count 5.17 M/mm3 (4.6-6.2); White Blood Count 7.6 K/mm3 (4.4-11.0)
[2020-11-17 13:52] LABS: International Normalized Ratio 1.3; Prothrombin Time (Protime)PT. 15.6 SECONDS (11.7-14.9)
[2020-11-17 13:53] LABS: Partial Thromboplast Time 39.5 Seconds (24.1-36.2)
[2020-11-17 14:02] LABS: Anion Gap 3 (5-15); BUN 16 mg/dL (7-18); BUN/Creat Ratio 13.7 RATIO (10-20); Calcium,Total 9.7 mg/dL (8.5-10.1); Chloride 103 mmol/L (98-107); Creatinine, Serum 1.17 mg/dL (0.70-1.30); EST Glomerular Filtration Rate 65 mL/min (>60); Est Glom Filt Rate - Afr Amer 79 mL/min (>60); Glucose 83 mg/dL (74-106); Potassium 3.4 mmol/L (3.5-5.1); Sodium Level 135 mmol/L (136-145)
--- NOTE | 2020-11-18 08:05 | PCM.HP.BLA ---
Documented by User: Tristian Crockett NP, TAYO-C 11/18/20 08:08 History and Physical Date of Admission: 11/22/20 ADDENDUM by CHRISTIAN Crockett on 11/17/20 at 1659 Assessment and Plan Assessment and Plan (1) Abnormal stress test: Status: Acute Comment: 11/10/2020; Plan: Patient underwent stress test on 11/10/2020 that was considered to be abnormal. Thus, he will proceed with heart catheterization to assess further. Plan Details Follow Up: 6 Weeks ([facility] [employer]IGN BRANCH/PA) Keep as is (PFM) 11/17/20 165<Electronically signed by Tristian GONZALES>Date Tristian Crockett NP cc: ~*Signed HPI HPI History of Present Illness Details: This is a 70-year-old gentleman that presents here today for a cardiovascular outpatient follow-up. He does have a history of hypertension, hyperlipidemia, obstructive sleep apnea, mild aortic stenosis. He also has a history of paroxysmal atrial fibrillation with cardioversion on 07/19/2020. He does acknowledge chest discomfort in the center of his chest 1 time a week that he describes as random and dull and feels like a pulled muscle. This is noted in the center, left, and right side of his chest. This comes and goes lasting for a day. This may also not be present for several. He does acknowledge occasional palpitations. He does not shortness of breath with exertion. He denies any lightheadedness, dizziness, near-syncope, or syncope. He denies any shortness of breath at rest, orthopnea, cough, or PND. He denies any bilateral lower extremity edema. Intake Vital Signs 10/27/20 10:21 Height 5 ft 9 in Weight: 200 lb BMI 29.5 BP 98/66 Blood Pressure Location Lt brachial Position Sitting Respiration 14 Pulse 80 Pulse Source Auscultation Intake Visit Reasons: 3 M Judge Required: No Accompanied by: None Is patient in pain?: No Allergies adhesive tape Allergy (Verified 10/27/20 10:24) Rash Medications atenolol 50 mg tablet 50 mg PO DAILY 06/25/19 [History Confirmed 10/27/20] calcium carbonate 600 mg calcium (1,500 mg) tablet 1,200 mg PO DAILY tab 06/25/19 [History Confirmed 10/27/20] fenofibrate nanocrystallized 145 mg tablet 145 mg PO DAILY 06/25/19 [History Confirmed 10/27/20] levomefolate 15 mg-algal oil 90.314 mg capsule 1 cap PO DAILY 06/25/19 [History Confirmed 10/27/20] lisinopril 20 mg-hydrochlorothiazide 25 mg tablet 1 tab PO DAILY 06/25/19 [History Confirmed 10/27/20] metformin 500 mg tablet 1,000 mg PO BID tab 06/25/19 [History Confirmed 10/27/20] multivitamin 1 tab PO DAILY 06/25/19 [History Confirmed 10/27/20] nifedipine 60 mg tablet,extended release 24 hr 60 mg PO DAILY 06/25/19 [History Confirmed 10/27/20] potassium chloride 10 mEq tablet,extended release 10 meq PO DAILY 06/25/19 [History Confirmed 10/27/20] semaglutide 1 mg/dose (2 mg/1.5 mL) subcutaneous pen injector 1 mg SC QWEEK 06/25/19 [History Confirmed 10/27/20] B-complex with vitamin C 1 cap PO DAILY 07/02/19 [History Confirmed 10/27/20] Panax ginseng root 1,000 mg tablet 1,000 mg PO DAILY 07/02/19 [History Confirmed 10/27/20] antiarthritic combination no.2 900 mg tablet 1,200 mg PO DAILY tab 07/02/19 [History Confirmed 10/27/20] arginine (L-arginine) 500 mg tablet 500 mg PO DAILY 07/02/19 [History Confirmed 10/27/20] cholecalciferol (vitamin D3) 100 mcg (4,000 unit) capsule 4,000 unit PO DAILY 07/02/19 [History Confirmed 10/27/20] cinnamon bark 500 mg capsule 500 mg PO DAILY 07/02/19 [History Confirmed 10/27/20] magnesium 250 mg tablet 250 mg PO DAILY 07/02/19 [History Confirmed 10/27/20] omega-3 fatty acids 1,000 mg capsule 1,000 mg PO BID 07/02/19 [History Confirmed 10/27/20] rosuvastatin 10 mg tablet 10 mg PO DAILY 07/02/19 [History Confirmed 10/27/20] saw palmetto 450 mg capsule 450 mg PO BID 07/02/19 [History Confirmed 10/27/20] vitamin E (dl, acetate) 400 unit capsule 400 unit PO DAILY 07/02/19 [History Confirmed 10/27/20] zinc acetate 25 mg (zinc) capsule 25 mg PO DAILY 07/02/19 [History Confirmed 10/27/20] apixaban 5 mg tablet 5 mg PO BID #180 tab 07/15/20 [Rx Confirmed 10/27/20] coenzyme Q10 100 mg tablet 100 mg PO DAILY 10/27/20 [History Confirmed 10/27/20] turmeric 400 mg capsule 400 mg PO DAILY cap 10/27/20 [History Confirmed 10/27/20] turmeric 400 mg capsule mg PO 10/27/20 [History Confirmed 10/27/20] Ejection fraction %: 65 to 70 PFSH Medical History (Updated 10/27/20 @ 11:05 by Tristian Crockett [employer] [facility], [facility]IGN [facility]-C) Atrial fibrillation Chest pain Dyspnea on exertion Essential hypertension Meningioma, cerebral Mixed hyperlipidemia TOOTIE (obstructive sleep apnea) Type 2 diabetes mellitus Valvular heart disease Surgical History History of arthroscopy of both knees History of cardioversion (~07/19/20) History of total left knee replacement Family History Mother Diabetes Heart disease Cancer Father Hypertension Cancer Lung Sister Diabetes Brother Diabetes Social History Smoking Status: Former smoker how long ago did patient quit smokin years ago alcohol intake: current alcohol intake frequency: holidays/special occasions only substance use type: does not use caffeine: Yes Type: coffee Number of servings: 2 ROS Const Const: Negative for fatigue, weakness, headache(s), frequent falls, difficulty sleeping or excessive sweating Eyes Eyes: Negative for loss of peripheral vision, transient loss of vision, blurry vision, double vision or tunnel vision ENT ENT: Positive for balance problems; Negative for headache(s), dizziness or Nosebleed/epistaxis Cardio Chest Pain: Yes (Occasionally discomfort in mid chest like a pulled muscle) Frequency: weekly (1 time a week) Character: dull Onset: other (randomly) Location: mid sternal, left chest and right chest Duration: hours (comes and goes and lasts about a day) Palpitations: Yes feels like its: skipping (Occasionally) Edema: None Muscle aches with walking: None Resp Respiratory: Positive for SOB with activity (With increased exertion); Negative for SOB at rest, SOB orthopnea\SOB lying down, Cough or paroxysmal nocturnal dyspnea GI GI: Negative nausea, vomiting, heartburn or black,tarry stools : Negative for hematuria Musc Musc: Positive for muscle weakness, joint pain and balance problems; Negative for muscle aches/ myalgia Skin Skin: Negative non-healing lesions, rash or unusual bruising Neuro Neuro: Negative for dizziness, lightheadedness, near syncope, syncope, frequent falls, headache(s), weakness, blurry vision, double vision or lack of coordination Sergio Hematologic/Lymphatic: Negative for easy bleeding or easy bruising Endo Endo: Negative for fatigue, excessive sweating or increased thirst/drinking Psych Psych: Negative for anxiety or depression Allergy Allergy/Immunology: Negative for hives and Negative for rash Cardiology Exam Const Appearance: cooperative, healthy appearing, comfortable and no acute distress Nutritional Appearance: average body habitus and well nourished Orientation: alert, awake and oriented x3 Head Head: normal to inspection Ears: hearing grossly normal bilaterally Nose: external nose normal Face and Sinus: face symmetric Mouth: oral mucosae normal Eyes General: appearance normal, both eyes and all related structures Eyelids: eyelids normal EOM: EOM intact bilaterally Neck Neck: normal visual inspection and no JVD Carotids: normal carotid upstroke Chest Chest inspection: normal inspection of the chest, symmetric chest movement and normal respiratory effort; Negative cough Auscultation: Bilateral: Clear to Auscultation Cardio Rate: regular rate Rhythm: irregular rhythm Heart sounds: S1 normal and S2 normal; Negative rub, gallop or murmur GI GI: normal to inspection Neuro General: patient alert, patient awake, patient oriented x3 and CN's II-XI intact bilaterally Skin Skin: no rashes or lesions noted Extremities Pulses: Normal: Right Posterior Tibial Pulse, Left Posterior Tibial Pulse, Right Radial Pulse and Left Radial Pulse Lower Extremity Edema: None: Bilateral Psych Psychological: normal affect Assessment and Plan Assessment and Plan (1) Atrial fibrillation: Status: Chronic Qualifiers: Atrial fibrillation type: paroxysmal Qualified Code(s): I48.0 - Paroxysmal atrial fibrillation Comment: DCCV on 07/19/2020; Orders: Orders: Nuclear Stress Test - Treadm Plan - Tristian Crockett [employer] [facility], [facility] DESIGN [facility]-C: His most recent echocardiogram in June 2020 showed ejection unction of 65% and mildly enlarged left atrium with normal right atrium size. His last stress test in June 2019 was negative for ischemia. His twelve-lead ECG on 07/26/2020, post cardioversion, showed atrial fibrillation at a rate of 80 bpm. He continues to appear to be in atrial fibrillation on exam. At this time, he will proceed with stress test to rule out coronary artery disease component to further guide antiarrhythmic medication. Based on stress test results, antiarrhythmic medication will be recommended. Once he has been on antiarrhythmic medication consistently, we will reevaluate his rhythm. If he remains in atrial fibrillation with antiarrhythmic medication, will consider repeat cardioversion. Hopefully, if this is required cardioversion plus antiarrhythmic medication will maintain sinus rhythm. Long-term if this plan is unsuccessful, will consider electrophysiology evaluation if patient desires. (2) Valvular heart disease: Status: Acute Orders: Orders: Nuclear Stress Test - Treadm Plan - Tristian Crockett [employer] [facility], CHIE[employer] DESIGN [facility]CH-C: His echocardiogram in June 2020 showed an ejection fraction of 65%, mild mitral valve insufficiency, and mild aortic valve stenosis. He had mild tricuspid insufficiency and mild pulmonic valve insufficiency. His RVSP was noted be 25 mmHg. This appears stable on exam exam. At this time, his valve disease is thought to not be contributing to his symptoms. We will continue to monitor through history, exam, and repeat echocardiogram as needed. (3) Essential hypertension: Status: Chronic Orders: Orders: Nuclear Stress Test - Treadm Plan - Tristian Crockett [employer] [facility], CHIEF DESIGN [facility]ANCH-C: His blood pressure is unusually low today. This appears to be uncharacteristic for him. He denies any associated symptoms. At this time, he will continue current medical therapy and we will continue to monitor. (4) Mixed hyperlipidemia: Status: Chronic Orders: Orders: Nuclear Stress Test - Treadm Plan - Tristian Crockett NP, [facility]IGN [facility]-C: He will continue current cholesterol-lowering medication, which includes Crestor 10 mg p.o. daily and fenofibrate therapy. (5) Chest pain: Status: Acute Orders: Orders: Nuclear Stress Test - Treadmil Today Plan - Tristian Crockett [employer] [facility], CHIEF DESIGN BRANCH-C: He does acknowledge episodes of chest pain. There are typical and atypical features to this. He was asked undergo a stress test to help rule out coronary artery disease component. His stress test will also aid in antiarrhythmic decision. (6) Dyspnea on exertion: Status: Acute Orders: Orders: Nuclear Stress Test - Treadmil Today Plan - Tristian Crockett [employer], CHIEF DESIGN BRANCH-C: He does acknowledge shortness of breath with activity. He does not feel this to be out of proportion for such activity. His most recent echocardiogram showed a preserved ejection fraction and mild mitral valve insufficiency and mild aortic valve stenosis. He does not appear to be in fluid volume overload state. It is unclear if this is associated to his rhythm or other etiology. He does not feel this was significantly improved after cardioversion when in sinus rhythm. This will be evaluated further with a stress test. Based on test results and long-term progress, further recommendation will be made. He will continue to follow with primary care physician for noncardiac etiology. Plan Details Follow Up: 6 Weeks (CHIEF DESIGN BRANCH/PA) Keep as is (PFM) Coding Level of Care Code Off vis,est,level 4 Diagnoses Atrial fibrillation I48.0 Atrial fibrillation type: paroxysmal Valvular heart disease I38 Essential hypertension I10 Mixed hyperlipidemia E78.2 Chest pain R07.9 Dyspnea on exertion R06.00 Coding Level of Care Code Off vis,est,level 4 Diagnoses Atrial fibrillation I48.0 Atrial fibrillation type: paroxysmal Valvular heart disease I38 Essential hypertension I10 Mixed hyperlipidemia E78.2 Chest pain R07.9 Dyspnea on exertion R06.00 Supplemental Info Supplemental Information Echocardiogram 06/2020: Left ventricular systolic function is normal. The estimated ejection fraction is 65 %. The left atrium is mildly enlarged. Mild diffuse mitral valve thickening. Mild (1+) mitral valve insufficiency. Mild tricuspid valve insufficiency. Mild aortic stenosis. Trivial aortic valve insufficiency. Mild (1+) pulmonic valve insufficiency. Right ventricular systolic pressure estimated to be 25 mmHg. Unable to assess diastolic dysfunction. Stress Test Report Date: 07-10-2019 Procedure: Exercise tolerance test/imaging study Indications: Shortness of breath/dyspnea on exertion Consent: Per the patient Procedure: The patient exercised on a Enoc protocol for 7 minutes completing Stage II and 1 minute of Stage III achieving a peak heart rate of 148 bpm (98 % predicted maximal heart rate) with a peak blood pressure 150/72 mmHg and a peak MET capacity of 8 METs. The baseline ECG demonstrated normal sinus rhythm. The peak exercise ECG demonstrated somatic/motion artifact with the appearance of [id number] ST segment variability with approximately [address] segment depression in leads II, III, aVF, and approximately 0.5 mm to [address] segment depression in leads V5 and V6 with gradual resolution towards baseline in recovery. There was a rare PVC during exercise and recovery and an atrial quadruplet during recovery. The functional capacity was considered average. There was no complaint of chest discomfort during exercise or recovery. The examination was discontinued secondary to dyspnea. Impression: 1. Technically adequate (percent predicted maximal heart rate greater than 85%) exercise tolerance test 2. Peak exercise ECG with [id number] ST segment variability with approximately [address] segment depression in leads II, III, aVF, and approximately 0.5 mm to [address] segment depression in leads V5 and V6 with gradual resolution towards baseline in recovery 3. There was a rare PVC during exercise and recovery and an atrial quadruplet during recovery 4. Nuclear images pending Myocardial perfusion imaging study: Technique: The patient was injected with 14.5 mCi of technetium 99m Cardiolite and subsequently rest SPECT Cardiolite nuclear imaging was obtained in the horizontal long, vertical long, and short axis views. The patient exercised on a Enoc protocol for 7 minutes completing Stage II and 1 minute of Stage III achieving a peak heart rate of 148 bpm (98 % predicted maximal heart rate) with a peak blood pressure 150/72 mmHg and a peak MET capacity of 8 METs. The patient was injected with 44.6 mCi of technetium 99m Cardiolite and subsequently stress SPECT Cardiolite nuclear imaging was obtained in the horizontal long, vertical long, and short axis views. A gated Cardiolite study at peak stress was obtained. Interpretation: Rest and stress SPECT Cardiolite nuclear imaging status post realignment, normalization, and attenuation correction, demonstrates the appearance of a small area of subtle diminished tracer uptake in the distal inferior segments at rest which appears to improve and/or normalize following stress. There is end systolic thickening and brightening. The gated Cardiolite study demonstrates myocardial thickening and inward wall motion. The reported LVEF is 57 %. Impression: 1. Rest and stress SPECT Cardiolite nuclear imaging demonstrate myocardial perfusion changes at rest which appear to improve and/or normalize following stress appearing compatible shifting soft tissue attenuation/artifact with no myocardial perfusion changes considered diagnostic for associated stress-induced myocardial ischemia. 2. The gated Cardiolite study reports an LVEF of 57 %. Labs: No Data to Display Diagnostics: Electrocardiogram Echocardiogram Stress Test NM Stress Test Chest X-Ray Pulmonary: No Data to Display 10/27/20 1114<Electronically signed by Tristian Crockett NP [facility]IGN [facility]-C>Date Tristian Crockett NP [employer]IGN [facility]-C COVID-19 Elective Procedure The surgeon/proceduralist and patient have discussed in detail the risk of exposure to and/or potential harm posed by the COVID-19 virus with having a surgery/procedure at this time versus the risk of? delaying the surgery/procedure. It is not possible to know either the risk of delaying the surgery or procedure or chance of getting an infection with perfect accuracy, but a joint decision was made between the patient and the surgeon/proceduralist ?to proceed at this time with the scheduled surgery/procedure as indicated on the consent form. Documented by User: Dr. Curt Franks MD 11/22/20 07:40 Assessment & Plan Assessment/Plan (1) Abnormal stress test: PLAN: Addendum: The patient had further evaluation with an exercise tolerance test/imaging study. The results are noted below. Stress Test Report Date: 11-10-2020 Procedure: Exercise tolerance test/imaging study Indications: Chest pain; shortness of breath/dyspnea on exertion; paroxysmal atrial fibrillation; aortic valve stenosis Consent: Per the patient Procedure: The patient exercised on a Enoc protocol for 6 minutes completing Stage II achieving a peak heart rate of 179 bpm (119% predicted maximal heart rate) with a peak blood pressure 160/70 mmHg and a peak MET capacity of 7 METs. The baseline ECG demonstrated atrial fibrillation; nonspecific ST/T wave abnormality. The peak exercise ECG demonstrated continued atrial fibrillation with nonspecific ST/T wave abnormality. There were no cardiac dysrhythmias pretest, during exercise, or recovery. The functional capacity was considered average. There was no complaint of chest discomfort during exercise or recovery. The examination was discontinued secondary to dyspnea. Impression: 1. Technically adequate (percent predicted maximal heart rate greater than 85%) exercise tolerance test 2. Peak exercise ECG with continued atrial fibrillation with nonspecific ST/T wave abnormality 3. There were no cardiac dysrhythmias pretest, during exercise, or recovery 4. Nuclear images pending Myocardial perfusion imaging study: Technique: The patient was injected with 12.0 mCi of technetium 99m Cardiolite and subsequently rest SPECT Cardiolite nuclear imaging was obtained in the horizontal long, vertical long, and short axis views. The patient exercised on a Enoc protocol for 6 minutes completing Stage II achieving a peak heart rate of 179 bpm (119% predicted maximal heart rate) with a peak blood pressure 160/70 mmHg and a peak MET capacity of 7 METs. The patient was injected with 33.8 mCi of technetium 99m Cardiolite and subsequently stress SPECT Cardiolite nuclear imaging was obtained in the horizontal long, vertical long, and short axis views. A gated Cardiolite study at peak stress was obtained. Interpretation: Rest and stress SPECT Cardiolite nuclear imaging status post realignment, normalization, and attenuation correction, demonstrates the appearance of body motion during image acquisition and at rest the appearance of relative uniform tracer uptake and myocardial perfusion appearing within normal limits and following stress the appearance of diminished myocardial perfusion/tracer uptake in portions of the mid to distal inferior septal/distal inferior/inferoapical segments. There are similar type findings on the stress polar map images.. There is diminished end systolic thickening and brightening.. The gated Cardiolite study demonstrates myocardial thickening and inward wall motion. The reported LVEF is 58%. Impression: 1. Rest and stress SPECT Cardiolite nuclear imaging demonstrate the appearance of body motion during image acquisition and status post stress the appearance of diminished myocardial perfusion/tracer uptake in portions of the mid to distal inferior septal/distal inferior/inferoapical segments concerning for an area of stress-induced myocardial ischemia. 2. The gated Cardiolite study reports an LVEF of 58%. Based upon the aforementioned findings the recommendation was made to proceed with further evaluation with diagnostic cardiac catheterization. The procedure and risks were discussed with the patient. He was agreeable to this approach. I have re-examined the patient. There are no clinical changes since date of exam.
[2020-11-21 09:26] VITALS: BMI 29.5
[2020-11-22 08:50] LABS: Anion Gap 8 (5-15); BUN 15 mg/dL (7-18); BUN/Creat Ratio 11.7 RATIO (10-20); Calcium,Total 9.6 mg/dL (8.5-10.1); Chloride 106 mmol/L (98-107); Creatinine, Serum 1.28 mg/dL (0.70-1.30); EST Glomerular Filtration Rate 59 mL/min (>60); Est Glom Filt Rate - Afr Amer 71 mL/min (>60); Glucose 112 mg/dL (74-106); Potassium 3.8 mmol/L (3.5-5.1); Sodium Level 141 mmol/L (136-145)
--- NOTE | 2020-11-22 11:33 | CL.D_ITS ---
Patient Name: ZOEY VARMA Study Date: 11/22/2020 Performing: Curt Franks MD Ht: 68.89 inches 175 cm : 1950 Wt: 200.62 lbs 91 kg Age: 70 Gender: male BSA: 2.07 PROCEDURE(S) PERFORMED FR97-TVD/COR/LV CLINICAL PROFILE AND INDICATIONS Indications: Other, Suspected CAD Heart Failure: None Stress/Imaging Date: 11/10/2020tress Test with SPECT MPI: Positive Intermediate Risk Angina Classification Anginal Classification w/in 2 Weeks: CCS III CAD Presentations: Other: dyspnea on exertion CONCLUSIONS Elevated Left Ventricular End Diastolic Pressure Normal LV size, wall motion,and systolic function LVEF: by LV gram 55 % [place] Multivessel CAD Mitral Valve Insufficiency Mild - Moderate RECOMMENDATIONS Risk factor modification Medical therapy DESCRIPTION OF PROCEDURE The patient arrived to the procedure lab. The risks and benefits of the procedure as well as a full d escription of our services here and current unavailability of surgical backup were fully explained to the patient and/or their significant other prior to the catheterization. The Timeout was completed, verifying the correct patient and procedure. The patient's procedural site was prepped and draped in the usual fashion. Local anesthetic was given subcutaneously to right radial region with Lidocaine 2% . Using a modified Seldinger technique, arterial access was obtained via the right radial artery, a 6 Fr sheath was inserted. Left Coronary Artery selective angiography was performed in multiple views u sing a 5 Fr. 4.0 [place] catheter. Right Coronary Artery selective angiography was then performed in mu ltiple views using a 5 Fr. 4.0 [place] catheter. Left Ventriculography was performed in LAMAR projection using a 5 Fr. Pig[place] catheter. LV to AO pullback pressures were then recorded.The arterial sheath was pulled and a TR Band was applied for hemostasis. 10cc of air CORONARY ANGIOGRAPHY DOMINANCE: Co- Dominant LEFT HEART ASSESSMENT Left Ventricular Ejection Fraction: by LV Gram 55 % Normal LV wall motion Elevated Left Ventricular End Diastolic Pressure LVEDP: 19 mmHg LEFT MAIN: Angiographically normal LEFT ANTERIOR DESCENDING ARTERY: Mild luminal irregularities CIRCUMFLEX ARTERY: MID CIRC: Mild luminal irregularities OM 1: Proximal - smooth: 25 % Stenosis RIGHT CORONARY ARTERY: DISTAL RCA: Mild luminal irregularities VALVE FINDINGS: Mitral Valve Insufficiency - Grade 1 to Grade 2 AORTIC ROOT: Angiographically normal COMPLICATIONS No Complications PROCEDURE MEDICATIONS Fentanyl 50 mcg IV Versed 1 mg IV Oxygen: 2 L/min via nasal cannula Heparin given IA 11/22/2020 10:40:22 Verapamil 2.5mg, Ntg 100mcgs, 3000 units of Heparin given IA 11/22/2020 10:40:22 SUMMARY OF HEMODYNAMIC DATA Time AIR REST ECG 09:00:10 AO 94/68 (83) SA 10:44:05 LV 122/0, 22 10:57:02 LV 125/-1, 19 10:57:08 LV 121/1, 21 10:58:02 LVp 126/0, 21 10:58:11 AOp 108/69 (89) 10:58:16 Signed By Curt Franks MD On 11/22/2020 11:32:14 Curt Franks MD
== END 2020-11-22 13:00 | disposition home or self-care (01) ==
LOC: CLSP 08:25
PROVIDERS: Nurse Practitioner Family; PCP Internal Medicine; Referring Provider Internal Medicine Cardiovascular Disease; Visit Provider Internal Medicine Cardiovascular Disease
DX: I25.10 Atherosclerotic heart disease of native coronary artery without angina pectoris (principal); I10 Essential (primary) hypertension; E11.9 Type 2 diabetes mellitus without complications; I48.20 Chronic atrial fibrillation, unspecified; G47.33 Obstructive sleep apnea (adult) (pediatric); E78.2 Mixed hyperlipidemia; I48.0 Paroxysmal atrial fibrillation; Z79.01 Long term (current) use of anticoagulants; Z79.84 Long term (current) use of oral hypoglycemic drugs; Z79.899 Other long term (current) drug therapy; Z87.891 Personal history of nicotine dependence
CPT/HCPCS: 36415; 80048; 85025; 85610; 85730; 93458; 99152; 99153; J7040; Q9967; C1769; C1894

== ENCOUNTER → 2020-11-24 15:19 | Outpatient (CLI) | payer MEDICARE, OTHER, SELFPAY ==
[2020-11-21 09:26] VITALS: BMI 29.5
[2020-11-24 16:34] LABS: Anion Gap 9 (5-15); BUN 17 mg/dL (7-18); BUN/Creat Ratio 14.4 RATIO (10-20); Calcium,Total 10.5 mg/dL (8.5-10.1); Chloride 102 mmol/L (98-107); Creatinine, Serum 1.18 mg/dL (0.70-1.30); EST Glomerular Filtration Rate 65 mL/min (>60); Est Glom Filt Rate - Afr Amer 78 mL/min (>60); Glucose 79 mg/dL (74-106); Potassium 3.4 mmol/L (3.5-5.1); Sodium Level 140 mmol/L (136-145)
== END ==
PROVIDERS: PCP Internal Medicine; Referring Provider Internal Medicine Cardiovascular Disease; Visit Provider Internal Medicine Cardiovascular Disease
DX: I10 Essential (primary) hypertension (principal); E78.2 Mixed hyperlipidemia; I38 Endocarditis, valve unspecified; I48.0 Paroxysmal atrial fibrillation; R94.39 Abnormal result of other cardiovascular function study
CPT/HCPCS: 36415; 80048

== ENCOUNTER → 2020-12-08 12:52 | Outpatient (CLI) | payer MEDICARE, OTHER, SELFPAY ==
[2020-11-21 09:26] VITALS: BMI 29.5
[2020-12-08 14:08] LABS: Anion Gap 8 (5-15); BUN 19 mg/dL (7-18); BUN/Creat Ratio 16.2 RATIO (10-20); Calcium,Total 9.6 mg/dL (8.5-10.1); Chloride 103 mmol/L (98-107); Creatinine, Serum 1.17 mg/dL (0.70-1.30); EST Glomerular Filtration Rate 65 mL/min (>60); Est Glom Filt Rate - Afr Amer 79 mL/min (>60); Glucose 90 mg/dL (74-106); Potassium 3.7 mmol/L (3.5-5.1); Sodium Level 139 mmol/L (136-145)
== END ==
PROVIDERS: PCP Internal Medicine; Referring Provider Internal Medicine Cardiovascular Disease; Visit Provider Internal Medicine Cardiovascular Disease
DX: I10 Essential (primary) hypertension (principal)
CPT/HCPCS: 36415; 80048

== ENCOUNTER → 2022-02-06 | Outpatient (CLI) | payer MEDICARE, OTHER, SELFPAY ==
--- NOTE | 2022-02-06 11:08 | MRI_ITS ---
STUDY: MRI BRAIN WITH AND WITHOUT CONTRAST REASON FOR EXAM: Male, 71 years old. Meningioma follow up TECHNIQUE: Standardized multiplanar fat and water weighted pulse sequences were obtained. 17ml IV Clariscan was administered for the contrast portion of the examination. COMPARISON: MRI of the brain dated January 15, 2019 and January 15, 2018. FINDINGS: Normal size of the ventricles and extra-axial spaces for the patient''s age. There are a limited number of small white matter hyperintensities, distributed throughout the deep white matter tracts of the cerebral hemispheres, consistent with mild chronic white matter ischemic changes. There is no evidence for recent intracranial ischemia or other cause of cytotoxic edema on diffusion weighted imaging (DWI). Normal T2* images of the brain without demonstrated susceptibility artifact. There is no demonstrated hemosiderin stain. Stable avidly enhancing benign meningioma in the right anterior temporal fossa posterior to the sphenoid wing measuring 1.16 cm in diameter, see image 10 series 10 on the postcontrast study. No additional meningiomas are present. There are no suspicious or other brain lesions. Normal bilateral basal ganglia. Normal thalami. There is no extra-axial fluid accumulation. Normal flow voids within the major intracranial circulation suggesting patency by spin echo criteria. Normal venous enhancement. There is no enhancing intra-axial or extra-axial abnormality. Normal sella turcica, pituitary gland, infundibular stalk, optic chiasm and hypothalamus. Normal tectal plate and pineal gland. Normal midbrain, nicci and medulla. Normal cerebellum. Normal basal cisterns. Normal bilateral temporal bones. Normal bilateral internal auditory canals. No demonstrated orbital abnormality, within the constraints of a routine brain study. Normal visualized paranasal sinuses. Normal calvarium and skull base. Normal visualized soft tissue structures. Normal visualized upper cervical spine. MRI/Brain W/WO Contrast IMPRESSION: 1. Stable avidly enhancing benign meningioma in the right anterior temporal fossa posterior to the sphenoid wing measuring 1.16 cm in diameter, see image 10 series 10 on the postcontrast study. No additional meningiomas are present. There are no suspicious or other brain lesions. Electronically Signed: Servando Van MD at 14:59 EDT ,
[2022-02-06 11:35] LABS: CREATININE FINGERSTICK < 0.9 mg/dL (0.70-1.30); EGFR FINGERSTICK > 60.0000 mL/min (>60)
== END | disposition home or self-care (01) ==
LOC: MRI 10:58
PROVIDERS: PCP Internal Medicine; Referring Provider Internal Medicine; Visit Provider Internal Medicine
DX: D32.0 Benign neoplasm of cerebral meninges (principal)
CPT/HCPCS: 70553; A9575

== ENCOUNTER 2022-03-14 17:00 | Outpatient (RCR) | payer MEDICARE, OTHER, SELFPAY ==
--- NOTE | 2022-02-13 07:51 | HP.PTEVAL ---
Patient's Visit Information ZOEY VARMA is a 71 year old M referred to Physical Therapy by Dr. Brenda Anderson DO with a diagnosis of Balance impairment. Date of Evaluation: 02/12/22 Physical Therapist: Alex Whyte DPT - Visit Plan Frequency: 2x /Week Duration: 4 Weeks Plan: Have balance assessment completed. Add findings to POC. Start with PF strengthening (band given today), progress to CKC as able. Add in hip strengthening. Progress dynamic/static balance in narrow situations and on uneven surfaces. PRogress HEP. - Subjective Pt. is here today for his initial evaluation with diagnosis of poor balance with need for gait training, strengthening and flexibility. Pt. reports having progressive difficulty with balance. He reports no falls, but feels like he is constantly has to correct his balance, especially when working out side. 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 PMH: diabetes II, Diabetic neuropathy, Afib, high BP but all are well managed. He had a L TKR ~4 years ago. Pt. reports some mild B knee pain, but none other martínez. He denies marked weakness, no double vision. He does wear glassess. Pt. is hopeful to improve his balance to reduce the risk for future falls. - Objective POSTURE: pt. has fairly normal posture in stance. he does have slight increase in postural sway after standing for a 1-2 minutes. PALPATION: no issues throughout BLEs. NEURO: Pt. has 1+ B achilles DTR, unable to elicit L patellar DTR (L TKA), 2+ R patellar DTR. Pt. unable to rise on toe, but is able to rise on heels. Pt. has decreased sensation in distal LEs, symmetrical and stocking pattern. ROM: PT. has decent ROM of B hips and knees. Slight tightness in B HS (~65deg) in 90/90 positioning. Pt. does have tightness in B ankles into DF (~8deg bilaterally). MMT: Pt. has good strength of B knees and hips, except 4/5 L hip flexion. He does however have decreased PF in B calves (3/5) 6# bilaterally, unable to complete against body weight. - Balance/Special Test Scores Functional Gait Assessment Score: 21 % Disability: 30.0000 CATSIB Score (Max score 120 seconds): 64 Lower Extremity Functional Score: 52 - Goals Goal 1:: LTG: Pt. to be I with HEP for balance and LE strengthening. Goal Time Frame: 4-6 Weeks Goal 2:: STG: Pt. to have balance assessment completed and finding added to POC. Goal Time Frame: 1 Week Goal 3:: LTG: Pt. to have increased FGA to 24/30 indicating reduce risk for future falls. Goal Time Frame: 4-6 Weeks Goal 4:: LTG: Pt. to have increased PF and hip strength by 10# throughout. Goal Time Frame: 4-6 Weeks - Rehabilitation Potential Physical Therapy Diagnosis: Pt. has signs and symptoms consistent with balance impairment and weakness in his BLE, greatest in weakness noted in ankle PF and hip strength. Pt. is able to correct balance with excessive hip strategies, especially when on uneven surfaces and with eyes closed. Patient wourl benefit from PT to address the above limitations progressing back to all recreational activities with decreased risk for falling. Rehabilitation Potential: Excellent - Anticipated Interventions Patient/Client Instruction: Educate patient on: Condition, Plan of Care, Risk Factors, Benefits of Fitness Program For the Purpose of:: To improve decision making, To facilitate caregiver knowledge, To improve self management, To prevent re-injury, To improve ability to perform tasks related to life management Therapeutic Exercise to Include: Strength training, Power training, Balance training, Coordination, Agility training, Postural training, Gait and locomotor training, Neuromotor development, via Neurocom Balance Mas, Dynamic Lumbar Stabilization For the Purpose of:: To improve nutrient delivery to tissue, To increase oxygenation perfusion, To improve muscle performance and motor function, To improve ability to perform ADL's, To increase tolerance to activity/condition/position, To improve health of tissue, To decrease soft tissue restriction, To increase flexibility/ROM, To improve balance Thank you for the opportunity to evaluate your patient. For Medicare and Medicare HMO plans, please review the plan of care and approve it. It will need to be FAXED BACK to us at [phone] for Medicare purposes. For Medicare only, by signing this I certify the plan of care. Please let me know if there are questions or concerns regarding this plan of care. Physician Signature: Date:
== END 2022-03-14 19:00 | disposition home or self-care (01) ==
LOC: PT 17:00
PROVIDERS: PCP Internal Medicine; Referring Provider Internal Medicine; Visit Provider Internal Medicine
DX: R26.81 Unsteadiness on feet (principal)
CPT/HCPCS: 97110; 97161; 97164; 97530

== ENCOUNTER → 2022-08-21 | Outpatient (CLI) | payer MEDICARE, OTHER, SELFPAY ==
[2022-08-21 11:23] LABS: Absolute Lymphocyte Count 1.38 X10^3/uL (0.83-4.51); Absolute Neutrophil Count 4.2 X10^3/uL (2.0-7.7); Basophil# 0.04 X10^3/uL; Basophil% 0.6 % (0-1); Eosinophils% 1.6 % (0-5); Hematocrit 43.4 % (40-54); Hemoglobin 14.7 g/dL (13.0-16.5); Lymphocyte # 1.38 X10^3/ul (0.83-4.51); Lymphocyte % 22.2 % (19-41); Mean Corp Hgb Conc 33.9 g/dL (32-36); Mean Corpuscular Hgb 30.1 pg (27.0-32.0); Mean Corpuscular Volume 88.8 fL (80-94); Mean Platelet Vol. 10.5 fl (6.2-12.0); Monocyte# 0.51 X10^3/uL; Monocyte% 8.2 % (0-10); NRBC Flagged by Analyzer 0 % (0-5); Neutrophil # 4.18 X10^3/uL (2.7-7.7); Neutrophil % 67.1 % (47-70); Platelet Count 234 K/mm3 (150-450); RBC Distribution Width CV 12.6 % (11.6-14.6); RBC Distribution Width SD 40.9 fl (35.1-43.9); Red Blood Count 4.89 M/mm3 (4.6-6.2); White Blood Count 6.2 K/mm3 (4.4-11.0)
[2022-08-21 11:44] LABS: Microalbumin:Creatinine Ratio 291.3 mg/g CRE (<30 mg/g CRE)
[2022-08-21 11:49] LABS: Vitamin B12 778 pg/mL (211-911); Vitamin D,25 Hydroxy 61.5 ng/mL
[2022-08-21 11:55] LABS: ALB/GLOB Ratio 1.2 RATIO (0.9-2.4); AST(SGOT) 26 U/L (15-37); Alanine Aminotransfer ALT/SGPT 26 U/L (16-61); Albumin, Serum 4.3 g/dL (3.2-5.0); Alkaline Phosphatase 54 U/L (45-117); Anion Gap 7 (5-15); BUN 19 mg/dL (7-18); Calcium,Total 9.7 mg/dL (8.5-10.1); Chloride 104 mmol/L (98-107); Creatinine, Serum 1.12 mg/dL (0.70-1.30); EST Glomerular Filtration Rate 69 mL/min (>60); Est Glom Filt Rate - Afr Amer 83 mL/min (>60); Globulin 3.6 g/dL (2.2-4.2); Glucose 93 mg/dL (74-106); PSA,Total- Diagnostic 4.65 ng/mL (0.0-4.0); Potassium 3.7 mmol/L (3.5-5.1); Protein, Total 7.9 g/dL (6.4-8.2); Sodium Level 139 mmol/L (136-145)
== END | disposition home or self-care (01) ==
LOC: LAB 10:22
PROVIDERS: PCP Internal Medicine; Referring Provider Registered Nurse; Visit Provider Registered Nurse
DX: R97.20 Elevated prostate specific antigen [PSA] (principal); E11.9 Type 2 diabetes mellitus without complications; R80.9 Proteinuria, unspecified; E53.8 Deficiency of other specified B group vitamins; E55.9 Vitamin D deficiency, unspecified
CPT/HCPCS: 36415; 80053; 82043; 82306; 82570; 82607; 84153; 84443; 85025

== ENCOUNTER 2022-10-11 17:00 | Outpatient (RCR) | payer MEDICARE, OTHER, SELFPAY ==
--- NOTE | 2022-09-13 16:48 | HP.PTEVAL ---
Patient's Visit Information ZOEY VARMA is a 72 year old M referred to Physical Therapy by Dr. Brenda Anderson DO with a diagnosis of R knee pain, L knee s/p TKA. Date of Evaluation: 09/13/22 Physical Therapist: Howard Mendez, DPT, OCS, CSCS - Visit Plan Frequency: 2x /Week Duration: 4-6 Weeks Plan: 2x/week for 4-6 weeks for teaching HEP of... 1. stretch HS and quads B to HEP. 2. strengthen hips and knees (careful with R knee pain) to HEP with pics. 3. activitiy modifciaiton for R knee due to degneration. 4. try to get more flexion in B knees. 5. may use MH - Subjective Had L TKA 2015, not R. Both knees get so stiff when he sits for any length of time. Standing too long makes them stiff. Pain in both now are similar and not like prior to knee surgery. Has neuropathy and has been using heating pads, Will try collagen and turmeric. 7/10 stiffness as working in yard R>L. Had balance treatment 4-5 months ago and that helped. MH helps the pain. Tingly below knees at rest. Neuropathy is form DM. Sleep is OK, Feels pretty good in am and he uses heat to start the day. No regular exercises. Has stopped his walking 3 miles. Spends day at desk 40 hrs per week. Getting up first twenty feet is difficult. After work is pretty sedentary. Some light yard work. - Pain B knees Pain Intensity (Out of 10): 1 Pain Intensity Range: 0, 7 - Objective R varus obvious with I gait, steps reciprocal but painful descending, no railing needed. 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 L is tender at joint line. Max tightness HS adn qud L >R. AROM R knee 0-110 and L knee -2 to 106. Hip extension limited to 3 B. Ankle aROM is full but very weak in PF unable to control body weight. 3+ PF B, 4- inv/ev, DF 4-. Sensation B LE limtied knee down with neuroapthy to gross light touch. reflexes 0/3 patella achilles. - Balance/Special Test Scores Lower Extremity Functional Score: 42 - Goals Goal 1:: o-112 AROM B knees to make steps easier. Goal Time Frame: 4-6 Weeks Goal 2:: Pain 0-2/10 in both knees, 50% better. Goal Time Frame: 4-6 Weeks Goal 3:: I appropr HEP to managem problems Goal Time Frame: 4-6 Weeks Goal 4:: LEFS score 55 Goal Time Frame: 4-6 Weeks - Rehabilitation Potential Physical Therapy Diagnosis: B knee pain R OA adn L weakness. Rehabilitation Potential: Fair - Anticipated Interventions Patient/Client Instruction: Educate patient on: Condition, Plan of Care For the Purpose of:: To decrease pain, To increase ROM, To improve nutrient delivery to tissue, To improve muscle performance and motor function, To increase tolerance to activity/condition/position, To improve ability of physical actions for home/community/work/leisure Therapeutic Exercise to Include: Strength training, Flexibilty training, Passive ROM, Active ROM For the Purpose of:: To decrease pain, To increase ROM, To improve nutrient delivery to tissue, To improve muscle performance and motor function, To increase tolerance to activity/condition/position Manual Therapy Techniques to Include: Mobilization, Soft tissue mobilization For the Purpose of:: To decrease pain, To increase ROM, To improve nutrient delivery to tissue Thermo therapy (hot pack): Yes For the Purpose of:: To increase ROM, To improve nutrient delivery to tissue Thank you for the opportunity to evaluate your patient. For Medicare and Medicare HMO plans, please review the plan of care and approve it. It will need to be FAXED BACK to us at [phone] for Medicare purposes. For Medicare only, by signing this I certify the plan of care. Please let me know if there are questions or concerns regarding this plan of care. Physician Signature: Date:
--- NOTE | 2022-10-11 17:50 | HP.PTDCSUM ---
It has been my pleasure to treat ZOEY VARMA referred by Dr. Brenda Escalante DO, with the diagnosis of R knee pain, L knee s/p TKA for a total of 7 visit(s). Discharge Date: 10/11/22 Please see the following information for a summary of their discharge status. Subjective: Defintiely improving. Walking much better. Needed some ibuprofen. May have done too much in yard. Feels like he can continue the exercises himself. Pain this week to 3/[address] escalante in three months. Doing leg lifts and stretching at home regularly. will be travelling next couple weeks and will continue via HEP. Steps reciprocally and much better. B knees Pain Intensity (Out of 10): 3 % Improvement: 60 Objective/Function: +10 LEFS. 120 R knee flexion adn 115 L. Steps reciprocal without rail. Very little stiffness. Has valgus B knees with ambulation noticeable, not overly painful. Overall improved and I with ex. Goal 1:: o-112 AROM B knees to make steps easier. Goal Progress: Goal Met Goal 2:: Pain 0-2/10 in both knees, 50% better. Goal Progress: Progressing Goal 3:: I appropr HEP to management problems Goal Progress: Goal Met Goal 4:: LEFS score 55 Goal Progress: Progressing Plan: d/c, pt to contact doctor if pain worsens again. If there are questions or concerns regarding this patient's physical therapy, please feel free to call me at [phone]. Thank you for the referral of this patient. Sincerely, Howard Mendez, DPT, OCS, CSCS Balance/Gait/Functional tests - Balance/Special Test Scores Lower Extremity Functional Score: 52
== END 2022-10-11 19:00 | disposition home or self-care (01) ==
LOC: PT 17:00
PROVIDERS: PCP Internal Medicine; Referring Provider Internal Medicine; Visit Provider Internal Medicine
DX: M17.11 Unilateral primary osteoarthritis, right knee (principal); Z96.652 Presence of left artificial knee joint
CPT/HCPCS: 97110; 97162; 97164

== ENCOUNTER → 2024-05-19 | Outpatient (CLI) | payer MEDICARE, OTHER, SELFPAY ==
--- NOTE | 2024-05-19 12:52 | ECHOD_ITS ---
Reason For Study: Afib/Flutter Procedure This was a 2D Doppler, Color Flow transthoracic echocardiogram. Exam performed in department. Left Ventricle Normal LV size. Left ventricular systolic function is normal. The left ventricular ejection fraction is 55 %. No regional wall motion abnormalities noted. Right Ventricle Normal RV size. Normal systolic function. Atria Normal left atrium. Normal right atrium. Mitral Valve Normal mitral valve. Tricuspid Valve Normal tricuspid valve. Mild (1+) tricuspid valve insufficiency. Pulmonary artery systolic pressure is 25 mmHg. Aortic Valve Trisinus/trileaflet aortic valve. Mild focal aortic valve calcification. Peak aortic valve gradient 16 mmHg. Mean aortic valve gradient 10 mmHg. Mild (1+) aortic valve insufficiency. Pulmonic Valve Normal pulmonic valve. Great Vessels Normal aortic root. The pulmonary artery is normal size. Inferior vena cava collapse with sniff. Pericardium/Pleural No pericardial effusion. MMode/2D Measurements & Calculations LVIDd: 4.2 cm IVSd: 1.2 cm LVOT diam: 2.1 cm LVIDs: 3.0 cm LVPWd: 1.00 cm LVOT area: 3.5 cm2 RVDd: 3.6 cm FS: 27.0 % Ao root diam: 3.7 cm LAV(MOD-bp): 82.8 ml LVAd ap4: 26.0 cm2 LAV(MOD-bp) Indexed: 40.3 ml/m2 LVLd ap4: 7.9 cm LAV(MOD-sp2): 83.1 ml EDV(MOD-sp4): 70.6 ml LAV(MOD-sp4): 75.8 ml EDV(sp4-el): 72.6 ml LVAs ap4: 16.8 cm2 LVLs ap4: 6.9 cm ESV(MOD-sp4): 34.1 ml ESV(sp4-el): 34.6 ml EF(MOD-sp4): 51.6 % EF(sp4-el): 52.3 % SV(MOD-sp4): 36.4 ml SV(sp4-el): 38.0 ml LA A4 area: 24.9 cm2 SI(MOD-sp4): 17.7 ml/m2 LA dimension(2D): 4.8 cm RA A4 area: 16.4 cm2 TAPSE: 2.3 cm Doppler Measurements & Calculations MV E max johnathan: 100.7 cm/sec MV V2 max: 102.3 cm/sec Ao V2 max: 201.5 cm/sec MV max P.2 mmHg Ao max P.2 mmHg MV V2 mean: 49.1 cm/sec Ao V2 mean: 145.3 cm/sec MV mean P.3 mmHg Ao mean P.6 mmHg MV V2 VTI: 23.5 cm Ao V2 VTI: 38.6 cm AV (velocity ratio): 0.50 MVA(VTI): 2.8 cm2 FACUNDO(I,D): 1.7 cm2 FACUNDO(V,D): 1.7 cm2 AI max johnathan: 417.2 cm/sec LV V1 max: 100.3 cm/sec MR max johnathan: 478.0 cm/sec AI max P.5 mmHg LV V1 max P.0 mmHg MR max P.4 mmHg LV V1 mean P.3 mmHg AI dec slope: 208.2 cm/sec2 LV V1 mean: 69.8 cm/sec AI P1/2t: 586.8 msec LV V1 VTI: 19.1 cm SV(LVOT): 66.1 ml PA V2 max: 89.3 cm/sec PI dec slope: 229.8 cm/sec2 TR max johnathan: 235.8 cm/sec TR max P.2 mmHg ECHO/Echo Complete Interpretation Summary Left ventricular systolic function is normal. Normal LV size. The left ventricular ejection fraction is 55 %. Mild (1+) aortic valve insufficiency. Mean aortic valve gradient 10 mmHg. Ordering Physician: Sukumar Lyle Referring Physician: Sukumar Lyle Performed By: Trav Cabral RCS
== END | disposition home or self-care (01) ==
LOC: CVS 12:52
PROVIDERS: PCP Internal Medicine; Referring Provider Internal Medicine Cardiovascular Disease; Visit Provider Internal Medicine Cardiovascular Disease
DX: I48.91 Unspecified atrial fibrillation (principal); I35.8 Other nonrheumatic aortic valve disorders
CPT/HCPCS: 93306

== ENCOUNTER → 2024-11-27 | Outpatient (CLI) | payer MEDICARE, OTHER, SELFPAY ==
--- NOTE | 2024-11-27 07:50 | MRI_ITS ---
PROCEDURE: PELVIS W/WO CONTRAST, 11/27/2024 REASON FOR EXAM: ELEVATED PSA. Reportedly, PSA is 7.3 on unspecified date per technologist report. TECHNIQUE: Multisequence multiplanar MRI pelvis was performed with and without IV contrast. IV Contrast: Information not provided COMPARISON: None FINDINGS: Variable overall mild motion limitation. A few sequences are mild/moderately motion degraded. Prostate size: 5.8 x 4.0 x 5.1 cm, estimated volume 61.5 mL. Per the above provided PSA, PSA density is 0.119 ng/mL. Transition zone: PI-RADS 2 findings. Additional lesions as below *Lesion 1: LEFT anterior and posterior transition zones extending from the midgland into the anterior transition zone base and apex, 3.5 cm (series 12, image 17, series 10, image 9). *T2 score: 5. *DWI score: 5. *DCE: N/A. *Overall PI-RADS: PI-RADS 5. *Extracapsular extension:No gross extracapsular extension, however, there is capsular abutment greater than 1 cm which increases the risk of occult early/microscopic extracapsular extension. *Lesion 2: RIGHT anterior transition zone centered in the midgland to apex but extending into the RIGHT anterior transition zone base, probably involving the anterior fibromuscular stroma and overlying anterior peripheral zone, 3.7 cm (series 10, image 9, series 12, image 20).. *T2 score: 5. *DWI score: 3. *DCE: N/A. *Overall PI-RADS: 5. *Extracapsular extension:No gross extracapsular extension, however, there is capsular abutment greater than 1 cm which increases the risk of occult early/microscopic extracapsular extension. Peripheral Zone: As above, otherwise there are background changes of likely prostatitis (PI-RADS 2). Neurovascular bundles: Unremarkable. Seminal vesicles: Unremarkable. Bladder: Underdistended and suboptimally evaluated. Mild trabeculation suggests possible chronic bladder outlet obstruction.. Lymph nodes: Unremarkable. Bones: No destructive or frankly suspicious bony lesions identified. Other: Prominent periprostatic vasculature.. MRI/Pelvis W/WO Contrast IMPRESSION: 1. Bilateral predominantly anterior transition zone PI-RADS 5 lesions as descri bed, up to 3.5 cm on the LEFT and 3.7 cm on the RIGHT, both greatest in craniocaudal extent. There is probably involvement of the overlying RIGHT anterior peripheral zone and anterior fibromuscular stroma. 2. No gross extracapsular extension, however, there is capsular abutment greate r than 1 cm bilaterally which increases the risk of occult early/microscopic extracapsular extension. 3. No overt pelvic lymphadenopathy. 4. Additional description as above. Reading Location: [id number]
== END | disposition home or self-care (01) ==
LOC: MRI 07:38
PROVIDERS: PCP Internal Medicine
DX: R97.20 Elevated prostate specific antigen [PSA] (principal)
CPT/HCPCS: 72197; A9575; A4216

== ENCOUNTER → 2025-03-08 | Outpatient (CLI) | payer MEDICARE, OTHER, SELFPAY ==
[2025-03-08 11:34] LABS: Mucous, Urine 0 SEEN /hpf (<or=2+); Squamous Epithelial Cells - UA 0 SEEN /hpf (0-5)
[2025-03-08 15:05] LABS: Hematocrit 43.5 % (40-54); Hemoglobin 15.5 g/dL (13.0-16.5); Immature Granulocytes Count 0.030 X10^3/uL (0.0-0.0); Mean Corp Hgb Conc 35.6 g/dL (32-36); Mean Corpuscular Volume 86.1 fL (80-94); Mean Platelet Vol. 10.4 fl (6.2-12.0); NRBC Flagged by Analyzer 0 % (0-5); Platelet Count 218 K/mm3 (150-450); RBC Distribution Width CV 12.8 % (11.6-14.6); RBC Distribution Width SD 39.6 fl (35.1-43.9); Red Blood Count 5.05 M/mm3 (4.6-6.2); White Blood Count 8.8 K/mm3 (4.4-11.0)
[2025-03-08 15:22] LABS: Color, Urine Yellow (Yellow); Glucose, Dipstick 1000 mg/dl (Normal); Ketone-Dipstick Negative (Negative); Leukocyte Esterase-Dipstick Negative /ul (Negative); Nitrite-Dipstick Negative (Negative); Occult Blood-Urine 250 /ul (Negative); Protein-Dipstick 30 mg/dl (Negative); Specific Gravity, Urine 1.015 (1.002-1.030); Urine Bilirubin Dipstick Negative (Negative)
[2025-03-08 15:30] LABS: Red Blood Cells-Urine 0-5 SEEN /hpf (0-5)
[2025-03-08 15:53] LABS: Creatinine, Urine (random) 63.60 mg/dL (39.00-259.00); Microalbumin,Random Urine 186.0 mg/L (<20 mg/L)
[2025-03-08 16:02] LABS: AST(SGOT) 41 U/L (<=37); Alanine Aminotransfer ALT/SGPT 36 U/L (<=46); Albumin, Serum 4.7 g/dL (3.4-4.8); Alkaline Phosphatase 88 U/L (40-129); Anion Gap 12 (5-15); BUN 17 mg/dL (4-19); BUN/Creat Ratio 18.2 RATIO (10-20); Calcium,Total 10.1 mg/dL (7.6-11.0); Carbon Dioxide 25.8 mmol/L (21.0-32.0); Chloride 102 mmol/L (98-108); Cholesterol 141 mg/dL (<=200); Globulin 3.3 g/dL (2.2-4.2); Glucose 92 mg/dL (70-99); Low Density Lipoprotein Calc. 68 mg/dL; Potassium 3.9 mmol/L (3.3-5.1); Triglycerides 169 mg/dL; Very Low Density Lipoprotein 34 mg/dL (5-40); Vitamin B12 1141 pg/mL (180-914); Vitamin D,25 Hydroxy 58.3 ng/mL (30-100); cholesterol:hdl ratio screen 3.19
== END | disposition home or self-care (01) ==
LOC: MTLAB 11:13
PROVIDERS: PCP Internal Medicine; Referring Provider Internal Medicine; Visit Provider Internal Medicine
DX: R80.9 Proteinuria, unspecified (principal); E11.9 Type 2 diabetes mellitus without complications; E55.9 Vitamin D deficiency, unspecified; E53.8 Deficiency of other specified B group vitamins; E78.5 Hyperlipidemia, unspecified
CPT/HCPCS: 36415; 80053; 80061; 81001; 82043; 82306; 82570; 82607; 84443; 85025

== ENCOUNTER → 2025-05-10 | Outpatient (CLI) | payer MEDICARE, OTHER, SELFPAY ==
--- NOTE | 2025-05-10 13:27 | MRI_ITS ---
PROCEDURE: PELVIS W/WO CONTRAST, 05/10/2025 REASON FOR EXAM: PLANNING FOR RADIATION EVAL DISEASE EXTENT. Per technologist report, most recent PSA 7.2 on 11/27/2024. TECHNIQUE: Multisequence multiplanar MRI pelvis was performed with and without IV contrast. IV Contrast: 17 mL Clariscan COMPARISON: 11/27/2024 FINDINGS: Prostate size: Unchanged. Suspect interval placement of fiducial markers. Scattered T1 bright presumed postbiopsy/postprocedural blood products, slightly limiting evaluation. Interval placement of spacing material between the anterior rectum and posterior prostate with good separation of the structures at the level of the base. Areas of persistent direct contact between the structures at the midgland to apex bilaterally. Suspect grade 1/2 anterior rectal wall infiltration. Transition zone: PI-RADS 2 findings. Additional lesions as below: *Lesion 1: Junction of the RIGHT anterior transition zone and overlying peripheral zone as well as anterior fibromuscular stroma, greatest in craniocaudal extent, extending from base to apex, 3.7 cm (series 10, image 18, series 12, image 19). *T2 score: 5. *DWI score: 3. *DCE: N/A. *Overall PI-RADS: 5. *Extracapsular extension: No definite extracapsular extension, however, note again that there is capsular abutment well over 1 cm which increases the risk of occult early/microscopic extracapsular extension. *Lesion 2: LEFT anterior and posterior transition zones extending from base to midgland, again greatest in craniocaudal extent, 3.3 cm (series 10, image 17, series 12, image 16). *T2 score: 3. *DWI score: 3. This previously demonstrated more significant restricted diffusion. *DCE: N/A. *Overall PI-RADS: PI-RADS 3 based on the current appearance, previously PI-RADS 5. *Extracapsular extension: No definite extracapsular extension, however, there is capsular abutment well over 1 cm which increases the risk of occult early/microscopic extracapsular extension. Peripheral Zone: As above. Otherwise, there are background changes of likely prostatitis (PI-RADS 2). Neurovascular bundles: Unremarkable. Seminal vesicles: Unremarkable. Bladder: Underdistended and suboptimally evaluated. Similar mild trabeculation and wall thickening which could reflect chronic bladder outlet obstruction. Lymph nodes: Unremarkable. Bones: No destructive or frankly suspicious bony lesions identified on nondedicated evaluation. Other: Partially imaged probably at most trace to small hydroceles.. New heterogeneous nodular T1 bright, T2 dark, and nonenhancing/hypoenhancing abnormality along the LEFT posterior most corpus spongiosum measures 2.1 x 1.7 x 1.7 cm. No associated restricted diffusion. MRI/Pelvis W/WO Contrast IMPRESSION: 1. Interval placement of fiducial markers and spacer gel with presumed post bio psy/postprocedural blood products limiting evaluation in some areas. Note that there is persistent contact between the an terior rectum and posterior prostate along the midgland to apex. 2. 2.1 cm nodular abnormality along the LEFT penile base is new from 11/27/2024 , nonspecific, conceivably related to above interval procedures. Signal characteristics are not suspicious for neoplastic involvement. 3. 3.7 cm PI-RADS 5 lesion at the junction of the RIGHT anterior transition zon e and the overlying peripheral zone and anterior fibromuscular stroma (lesion 1). 4. 3.3 cm PI-RADS 3 lesion of the LEFT anterior and posterior transition zones extending from base to midgland (lesion 2). This previously demonstrated more suspicious signal characteristics. 5. No definite extracapsular extension, however, there is capsular abutment wel l over 1 cm by both lesions which increases the risk of occult early/microscopic extracapsular extension 6. No overt pelvic lymphadenopathy 7. Additional description as above. Reading Location: [id number]
== END | disposition home or self-care (01) ==
LOC: OPMRI 13:04
PROVIDERS: PCP Internal Medicine; Referring Provider Student in an Organized Health Care Education/Training Program; Visit Provider Student in an Organized Health Care Education/Training Program
DX: C61 Malignant neoplasm of prostate (principal)
CPT/HCPCS: 72197; A9575; A4216